=== PATIENT | male | born 1940 | race Caucasian/White ===

== ENCOUNTER → 2017-03-18 | Day surgery (SDC) | payer MEDICARE, OTHER ==
[~2017-03-18] MED LIST: BUPIVACAINE/EPINEPHRINE 0.25% 50 ML VIAL; KETOROLAC TROMETHAMINE 30 MG/ML (IVP) VIAL IV PUSH; LACTATED RINGER'S 1000 ML INJ 1,000 ML; MORPHINE SULFATE 4 MG/ML INJ; ONDANSETRON HCL 4 MG/2 ML VIAL IV PUSH; PROPOFOL 200 MG/20 ML AMP IV; ceFAZolin 2 GM PREMIX 50 ML
== END | disposition home or self-care (01) ==
LOC: ESDC 07:46
DX: K40.20 Bilateral inguinal hernia, without obstruction or gangrene, not specified as recurrent (principal)
CPT/HCPCS: 00840

== ENCOUNTER 2018-04-04 05:28 | Inpatient (IN) ==
[2018-04-04] MEDS ORDERED: Acetaminophen 325 MG Tablet PO ONE (05:53)
--- NOTE | 2018-04-04 06:08 | ED ---
HPI General Chief complaint: Fall Stated complaint: Hip pain Time Seen by Provider: 04/04/18 05:44 Source: patient Mode of arrival: EMS Limitations: no limitations History of Present Illness HPI narrative: 78-year-old [facility]. Patient says that yesterday he fell twice and today he fell once. No history of syncopal episode. Patient says that he feels weak and his legs give out. Patient is aware of all his falls. [facility] paperwork says that patient has history of frequent falls which patient admitted to. His temperature in ER was 103.5 rectally. He says he has been coughing a little. No history of vomiting or diarrhea. He was complaining of some sacral pain. Oxygen saturation was 93% on room air. Blood pressure and heart rate is within acceptable limits Related Data Home Medications Medication Instructions Recorded Confirmed aspirin 81 mg PO DAILY 04/04/18 04/04/18 docusate sodium [Colace] 100 mg PO DAILY 04/04/18 04/04/18 donepezil 10 mg PO DAILY 04/04/18 04/04/18 ezetimibe 10 mg PO DAILY 04/04/18 04/04/18 ferrous sulfate 324 mg PO BID 04/04/18 04/04/18 levetiracetam [Keppra] 1,000 mg PO BID 04/04/18 04/04/18 melatonin 5 mg PO HS 04/04/18 04/04/18 phenytoin sodium extended 200 mg PO BID 04/04/18 04/04/18 [Dilantin Extended] tamsulosin 0.4 mg PO DAILY 04/04/18 04/04/18 trazodone 50 mg PO HS 04/04/18 04/04/18 Allergies Allergy/AdvReac Type Severity Reaction Status Date / Time No Known Allergies Allergy Verified 04/04/18 05:39 Review of Systems ROS: all other systems reviewed are negative [facility] Social History Social History Substance History: No History of Abuse Second Hand Smoke Exposure: No Smoking Status: Never smoker How Often Do You Have a Drink Containing Alcohol: Never Recent Travel in [facility] within the Last 8 Weeks: No Recent Out of Country Travel within the Last 8 Weeks: No Immunization History Tetanus Immunization: Unsure Exam Narrative Exam Narrative: GENERAL: Awake, elderly, frail, moderate distress SKIN: Focused skin assessment warm/dry. Erythematous, blotchy, blanching, macular rash on bilateral lower extremities. Senile ecchymosis on bilateral upper extremities HEAD: Atraumatic. Normocephalic. EYES: Pupils equal and round. No scleral icterus. No injection or drainage. ENT: No nasal bleeding or discharge. Mucous membranes pink and moist. NECK: Trachea midline. No JVD. CARDIOVASCULAR: Regular rate and rhythm. No murmur appreciated. RESPIRATORY: No accessory muscle use. Clear to auscultation. Breath sounds equal bilaterally. GASTROINTESTINAL: Abdomen soft, non-tender, nondistended. Hepatic and splenic margins not palpable. MUSCULOSKELETAL: No obvious deformities. No clubbing. No cyanosis. No edema. Patient was rolled to his side and the spine palpated. No midline tenderness or step-offs. No decubitus ulcer NEUROLOGICAL: Awake and alert. No obvious cranial nerve deficits. Motor grossly within normal limits. Normal speech. PSYCHIATRIC: Appropriate mood and affect; insight and judgment normal. Course Initial Documented Vital Signs Temperature 100.7 F H 04/04/18 05:32 Pulse Rate 83 04/04/18 05:32 Respiratory Rate 18 04/04/18 05:32 Blood Pressure 162/85 H 04/04/18 05:32 Pulse Oximetry 93 L 04/04/18 05:32 Last Documented Vital Signs Temperature 98.0 F 04/07/18 12:00 Pulse Rate 75 04/07/18 12:00 Respiratory Rate 18 04/07/18 12:00 Blood Pressure 143/79 H 04/07/18 12:00 Pulse Oximetry 95 04/07/18 12:00 Sign Out Sign Out Data: Patient Sign Out occurred on 04/04/18 at 07:05. Patient's care was discussed, and care was transferred from Adriana Wilson to Braulio Fitzgerald MD. Sign Out Comment: Fever, frequent falls, follow-up on blood test result. Patient should be admitted Last updated by Adriana Wilson MD at 04/04/18 07:02 Post-Handoff Eval: Patient care assumed by me Dr. Fitzgerald from Dr. Wilson at 07 100, 78-year-old male apparently with a history of dementia according to she is presents emerged part with 103.1 fever, neutrophilia and urinary tract infection. Patient is just shy of sepsis criteria. He is confused, partially oriented for me. He is thinks that he is in his room now. He thinks is 2017 and April 03. Is not able to demonstrate understanding of why he is here. I do not disagree with Dr. Wilson's assessment the patient would benefit from IV antibiotics for complicated UTI near sepsis for a day or 2-6 times can be evaluated for discharge. Patient was started on empiric Rocephin, liter normal saline, Tylenol been given. I do not think he needs aggressive fluid resuscitation at this time. Lactic acid normal. Will discuss with the hospitalist extension worker. Medical Decision Making MDM Narrative Medical decision making narrative: 6:07 AM patient was given 650 mg of Tylenol p.o. 1 L of IV fluid bolus. Awaiting for blood test be done and resulted. 7 AM awaiting for blood test result. Patient has been signed over to the oncoming ER physician. Medical Screen Exam Complete: Yes Emergency Medical Condition: Yes Lab Data Result diagrams: 04/07/18 07:20 04/05/18 06:04 Lab Results 04/04/18 04/04/18 04/04/18 Range/Units 06:00 06:00 06:00 WBC 7.4 (4.0-11.0) th/mm3 RBC 4.82 (4.50-5.90) mil/mm3 Hgb 15.2 (13.0-17.0) gm/dL Hct 43.8 (39.0-51.0) % MCV 90.8 (80.0-100.0) fL MCH 31.5 (27.0-34.0) pg MCHC 34.7 (32.0-36.0) % RDW 13.5 (11.6-17.2) % Plt Count 183 (150-450) th/mm3 MPV 8.2 (7.0-11.0) fL Neut % (Auto) 89.4 H (16.0-70.0) % Lymph % (Auto) 1.5 L (9.0-44.0) % [place] % (Auto) 5.6 (0.0-8.0) % Eos % (Auto) 3.3 (0.0-4.0) % Baso % (Auto) 0.2 (0.0-2.0) % Neut # (Auto) 6.6 (1.8-7.7) th/mm3 Lymph # (Auto) 0.1 L (1.0-4.8) th/mm3 [place] # (Auto) 0.4 (0.0-0.9) th/mm3 Eos # (Auto) 0.2 (0.0-0.4) th/mm3 Baso # (Auto) 0.0 (0.0-0.2) th/mm3 WBC Differential . Differential Comment Auto diff final PT 10.9 (9.8-11.6) sec INR 1.1 Ratio Sodium (136-145) meq/L Potassium (3.5-5.1) meq/L Chloride (98-107) meq/L Carbon Dioxide (21.0-32.0) meq/L Anion Gap (5-15) meq/L BUN (7-18) mg/dL Creatinine (0.60-1.30) mg/dL Estimated GFR (>89) mL/min POC Glucose (68-110) mg/dl Random Glucose (74-106) mg/dL Lactic Acid (0.4-2.0) mmol/L Calcium (8.5-10.1) mg/dL Calcium Adj for Albumin (8.5-10.1) mg/dL Phosphorus (2.5-4.9) mg/dL Magnesium (1.5-2.5) mg/dL Total Bilirubin (0.2-1.0) mg/dL AST (15-37) U/L ALT (12-78) U/L Alkaline Phosphatase (45-117) U/L Troponin I Less than 0.02 L (0.02-0.05) ng/mL Total Protein (6.4-8.2) g/dL Albumin (3.4-5.0) g/dL Vitamin B12 (193-986) pg/mL Vitamin D 25-Hydroxy (30-100) ng/mL TSH (0.358-3.740) uIU/mL Urine Color (Yellw/Straw) Urine Clarity (Clear) Urine pH (5.0-8.5) Ur Specific [place] (1.002-1.035) Urine Protein (Neg-Trace) mg/dL Urine Glucose (UA) (Negative) mg/dL Urine Ketones (Negative) mg/dL Urine Occult Blood (Negative) Urine Nitrate (Negative) Urine Bilirubin (Negative) Urine Ictotest (Negative) Urine Urobilinogen (Less than 2) mg/dL Ur Leukocyte Esterase (Negative) Urine RBC (0-3) /hpf Urine WBC (0-5) /hpf Triple Phos Crystals (None) /hpf Urine Bacteria (None) /hpf Urine Mucus (Occasional) /lpf Micro UA Comment Ur Microscopic Review Urine Culture Comments 04/04/18 04/04/18 04/04/18 Range/Units 06:00 06:05 06:27 WBC (4.0-11.0) th/mm3 RBC (4.50-5.90) mil/mm3 Hgb (13.0-17.0) gm/dL Hct (39.0-51.0) % MCV (80.0-100.0) fL MCH (27.0-34.0) pg MCHC (32.0-36.0) % RDW (11.6-17.2) % Plt Count (150-450) th/mm3 MPV (7.0-11.0) fL Neut % (Auto) (16.0-70.0) % Lymph % (Auto) (9.0-44.0) % [place] % (Auto) (0.0-8.0) % Eos % (Auto) (0.0-4.0) % Baso % (Auto) (0.0-2.0) % Neut # (Auto) (1.8-7.7) th/mm3 Lymph # (Auto) (1.0-4.8) th/mm3 [place] # (Auto) (0.0-0.9) th/mm3 Eos # (Auto) (0.0-0.4) th/mm3 Baso # (Auto) (0.0-0.2) th/mm3 WBC Differential Differential Comment PT (9.8-11.6) sec INR Ratio Sodium 138 (136-145) meq/L Potassium 3.7 (3.5-5.1) meq/L Chloride 103 (98-107) meq/L Carbon Dioxide 26.8 (21.0-32.0) meq/L Anion Gap 8 (5-15) meq/L BUN 22 H (7-18) mg/dL Creatinine 0.93 (0.60-1.30) mg/dL Estimated GFR 79 L (>89) mL/min POC Glucose (68-110) mg/dl Random Glucose 97 (74-106) mg/dL Lactic Acid 1.5 (0.4-2.0) mmol/L Calcium 8.2 L (8.5-10.1) mg/dL Calcium Adj for Albumin (8.5-10.1) mg/dL Phosphorus (2.5-4.9) mg/dL Magnesium 1.9 (1.5-2.5) mg/dL Total Bilirubin 0.5 (0.2-1.0) mg/dL AST 32 (15-37) U/L ALT 47 (12-78) U/L Alkaline Phosphatase 107 (45-117) U/L Troponin I (0.02-0.05) ng/mL Total Protein 6.9 (6.4-8.2) g/dL Albumin 3.5 (3.4-5.0) g/dL Vitamin B12 (193-986) pg/mL Vitamin D 25-Hydroxy (30-100) ng/mL TSH (0.358-3.740) uIU/mL Urine Color Yellow (Yellw/Straw) Urine Clarity Cloudy H (Clear) Urine pH 8.5 (5.0-8.5) Ur Specific [place] 1.025 (1.002-1.035) Urine Protein 30 H (Neg-Trace) mg/dL Urine Glucose (UA) Negative (Negative) mg/dL Urine Ketones 20 (Negative) mg/dL Urine Occult Blood Trace H (Negative) Urine Nitrate Negative (Negative) Urine Bilirubin Negative (Negative) Urine Ictotest Negative (Negative) Urine Urobilinogen 0.2 (Less than 2) mg/dL Ur Leukocyte Esterase Trace H (Negative) Urine RBC 3 (0-3) /hpf Urine WBC 26 H (0-5) /hpf Triple Phos Crystals Moderate H (None) /hpf Urine Bacteria Many H (None) /hpf Urine Mucus Few H (Occasional) /lpf Micro UA Comment Culture indicated Ur Microscopic Review Not Reportable Urine Culture Comments Culture indicated 04/05/18 04/05/18 04/05/18 Range/Units 00:48 06:04 06:04 WBC 3.7 L (4.0-11.0) th/mm3 RBC 4.06 L (4.50-5.90) mil/mm3 Hgb 12.5 L D (13.0-17.0) gm/dL Hct 36.4 L (39.0-51.0) % MCV 89.6 (80.0-100.0) fL MCH 30.9 (27.0-34.0) pg MCHC 34.5 (32.0-36.0) % RDW 13.8 (11.6-17.2) % Plt Count 163 (150-450) th/mm3 MPV 8.2 (7.0-11.0) fL Neut % (Auto) 45.0 (16.0-70.0) % Lymph % (Auto) 11.8 (9.0-44.0) % [place] % (Auto) 10.4 H (0.0-8.0) % Eos % (Auto) 32.4 H (0.0-4.0) % Baso % (Auto) 0.4 (0.0-2.0) % Neut # (Auto) 1.7 L (1.8-7.7) th/mm3 Lymph # (Auto) 0.4 L (1.0-4.8) th/mm3 [place] # (Auto) 0.4 (0.0-0.9) th/mm3 Eos # (Auto) 1.2 H (0.0-0.4) th/mm3 Baso # (Auto) 0.0 (0.0-0.2) th/mm3 WBC Differential . Differential Comment Auto diff final PT (9.8-11.6) sec INR Ratio Sodium 142 (136-145) meq/L Potassium 3.6 (3.5-5.1) meq/L Chloride 111 H D (98-107) meq/L Carbon Dioxide 23.2 (21.0-32.0) meq/L Anion Gap 8 (5-15) meq/L BUN 22 H (7-18) mg/dL Creatinine 0.72 (0.60-1.30) mg/dL Estimated GFR Greater than 89 (>89) mL/min POC Glucose 91 (68-110) mg/dl Random Glucose 82 (74-106) mg/dL Lactic Acid (0.4-2.0) mmol/L Calcium 7.3 L* D (8.5-10.1) mg/dL Calcium Adj for Albumin 8.6 (8.5-10.1) mg/dL Phosphorus (2.5-4.9) mg/dL Magnesium (1.5-2.5) mg/dL Total Bilirubin (0.2-1.0) mg/dL AST (15-37) U/L ALT (12-78) U/L Alkaline Phosphatase (45-117) U/L Troponin I (0.02-0.05) ng/mL Total Protein (6.4-8.2) g/dL Albumin 2.4 L D (3.4-5.0) g/dL Vitamin B12 (193-986) pg/mL Vitamin D 25-Hydroxy (30-100) ng/mL TSH (0.358-3.740) uIU/mL Urine Color (Yellw/Straw) Urine Clarity (Clear) Urine pH (5.0-8.5) Ur Specific [place] (1.002-1.035) Urine Protein (Neg-Trace) mg/dL Urine Glucose (UA) (Negative) mg/dL Urine Ketones (Negative) mg/dL Urine Occult Blood (Negative) Urine Nitrate (Negative) Urine Bilirubin (Negative) Urine Ictotest (Negative) Urine Urobilinogen (Less than 2) mg/dL Ur Leukocyte Esterase (Negative) Urine RBC (0-3) /hpf Urine WBC (0-5) /hpf Triple Phos Crystals (None) /hpf Urine Bacteria (None) /hpf Urine Mucus (Occasional) /lpf Micro UA Comment Ur Microscopic Review Urine Culture Comments 04/05/18 04/05/18 04/05/18 Range/Units 06:17 11:40 16:52 WBC (4.0-11.0) th/mm3 RBC (4.50-5.90) mil/mm3 Hgb (13.0-17.0) gm/dL Hct (39.0-51.0) % MCV (80.0-100.0) fL MCH (27.0-34.0) pg MCHC (32.0-36.0) % RDW (11.6-17.2) % Plt Count (150-450) th/mm3 MPV (7.0-11.0) fL Neut % (Auto) (16.0-70.0) % Lymph % (Auto) (9.0-44.0) % [place] % (Auto) (0.0-8.0) % Eos % (Auto) (0.0-4.0) % Baso % (Auto) (0.0-2.0) % Neut # (Auto) (1.8-7.7) th/mm3 Lymph # (Auto) (1.0-4.8) th/mm3 [place] # (Auto) (0.0-0.9) th/mm3 Eos # (Auto) (0.0-0.4) th/mm3 Baso # (Auto) (0.0-0.2) th/mm3 WBC Differential Differential Comment PT (9.8-11.6) sec INR Ratio Sodium (136-145) meq/L Potassium (3.5-5.1) meq/L Chloride (98-107) meq/L Carbon Dioxide (21.0-32.0) meq/L Anion Gap (5-15) meq/L BUN (7-18) mg/dL Creatinine (0.60-1.30) mg/dL Estimated GFR (>89) mL/min POC Glucose 97 94 83 (68-110) mg/dl Random Glucose (74-106) mg/dL Lactic Acid (0.4-2.0) mmol/L Calcium (8.5-10.1) mg/dL Calcium Adj for Albumin (8.5-10.1) mg/dL Phosphorus (2.5-4.9) mg/dL Magnesium (1.5-2.5) mg/dL Total Bilirubin (0.2-1.0) mg/dL AST (15-37) U/L ALT (12-78) U/L Alkaline Phosphatase (45-117) U/L Troponin I (0.02-0.05) ng/mL Total Protein (6.4-8.2) g/dL Albumin (3.4-5.0) g/dL Vitamin B12 (193-986) pg/mL Vitamin D 25-Hydroxy (30-100) ng/mL TSH (0.358-3.740) uIU/mL Urine Color (Yellw/Straw) Urine Clarity (Clear) Urine pH (5.0-8.5) Ur Specific [place] (1.002-1.035) Urine Protein (Neg-Trace) mg/dL Urine Glucose (UA) (Negative) mg/dL Urine Ketones (Negative) mg/dL Urine Occult Blood (Negative) Urine Nitrate (Negative) Urine Bilirubin (Negative) Urine Ictotest (Negative) Urine Urobilinogen (Less than 2) mg/dL Ur Leukocyte Esterase (Negative) Urine RBC (0-3) /hpf Urine WBC (0-5) /hpf Triple Phos Crystals (None) /hpf Urine Bacteria (None) /hpf Urine Mucus (Occasional) /lpf Micro UA Comment Ur Microscopic Review Urine Culture Comments 04/05/18 04/06/18 04/06/18 Range/Units 23:34 05:31 07:39 WBC (4.0-11.0) th/mm3 RBC (4.50-5.90) mil/mm3 Hgb (13.0-17.0) gm/dL Hct (39.0-51.0) % MCV (80.0-100.0) fL MCH (27.0-34.0) pg MCHC (32.0-36.0) % RDW (11.6-17.2) % Plt Count (150-450) th/mm3 MPV (7.0-11.0) fL Neut % (Auto) (16.0-70.0) % Lymph % (Auto) (9.0-44.0) % [place] % (Auto) (0.0-8.0) % Eos % (Auto) (0.0-4.0) % Baso % (Auto) (0.0-2.0) % Neut # (Auto) (1.8-7.7) th/mm3 Lymph # (Auto) (1.0-4.8) th/mm3 [place] # (Auto) (0.0-0.9) th/mm3 Eos # (Auto) (0.0-0.4) th/mm3 Baso # (Auto) (0.0-0.2) th/mm3 WBC Differential Differential Comment PT (9.8-11.6) sec INR Ratio Sodium (136-145) meq/L Potassium (3.5-5.1) meq/L Chloride (98-107) meq/L Carbon Dioxide (21.0-32.0) meq/L Anion Gap (5-15) meq/L BUN (7-18) mg/dL Creatinine (0.60-1.30) mg/dL Estimated GFR (>89) mL/min POC Glucose 83 87 94 (68-110) mg/dl Random Glucose (74-106) mg/dL Lactic Acid (0.4-2.0) mmol/L Calcium (8.5-10.1) mg/dL Calcium Adj for Albumin (8.5-10.1) mg/dL Phosphorus (2.5-4.9) mg/dL Magnesium (1.5-2.5) mg/dL Total Bilirubin (0.2-1.0) mg/dL AST (15-37) U/L ALT (12-78) U/L Alkaline Phosphatase (45-117) U/L Troponin I (0.02-0.05) ng/mL Total Protein (6.4-8.2) g/dL Albumin (3.4-5.0) g/dL Vitamin B12 (193-986) pg/mL Vitamin D 25-Hydroxy (30-100) ng/mL TSH (0.358-3.740) uIU/mL Urine Color (Yellw/Straw) Urine Clarity (Clear) Urine pH (5.0-8.5) Ur Specific [place] (1.002-1.035) Urine Protein (Neg-Trace) mg/dL Urine Glucose (UA) (Negative) mg/dL Urine Ketones (Negative) mg/dL Urine Occult Blood (Negative) Urine Nitrate (Negative) Urine Bilirubin (Negative) Urine Ictotest (Negative) Urine Urobilinogen (Less than 2) mg/dL Ur Leukocyte Esterase (Negative) Urine RBC (0-3) /hpf Urine WBC (0-5) /hpf Triple Phos Crystals (None) /hpf Urine Bacteria (None) /hpf Urine Mucus (Occasional) /lpf Micro UA Comment Ur Microscopic Review Urine Culture Comments 04/06/18 04/06/18 04/06/18 Range/Units 11:47 16:12 16:24 WBC (4.0-11.0) th/mm3 RBC (4.50-5.90) mil/mm3 Hgb 13.2 (13.0-17.0) gm/dL Hct 37.7 L (39.0-51.0) % MCV (80.0-100.0) fL MCH (27.0-34.0) pg MCHC (32.0-36.0) % RDW (11.6-17.2) % Plt Count (150-450) th/mm3 MPV (7.0-11.0) fL Neut % (Auto) (16.0-70.0) % Lymph % (Auto) (9.0-44.0) % [place] % (Auto) (0.0-8.0) % Eos % (Auto) (0.0-4.0) % Baso % (Auto) (0.0-2.0) % Neut # (Auto) (1.8-7.7) th/mm3 Lymph # (Auto) (1.0-4.8) th/mm3 [place] # (Auto) (0.0-0.9) th/mm3 Eos # (Auto) (0.0-0.4) th/mm3 Baso # (Auto) (0.0-0.2) th/mm3 WBC Differential Differential Comment PT (9.8-11.6) sec INR Ratio Sodium (136-145) meq/L Potassium (3.5-5.1) meq/L Chloride (98-107) meq/L Carbon Dioxide (21.0-32.0) meq/L Anion Gap (5-15) meq/L BUN (7-18) mg/dL Creatinine (0.60-1.30) mg/dL Estimated GFR (>89) mL/min POC Glucose 84 96 (68-110) mg/dl Random Glucose (74-106) mg/dL Lactic Acid (0.4-2.0) mmol/L Calcium (8.5-10.1) mg/dL Calcium Adj for Albumin (8.5-10.1) mg/dL Phosphorus (2.5-4.9) mg/dL Magnesium (1.5-2.5) mg/dL Total Bilirubin (0.2-1.0) mg/dL AST (15-37) U/L ALT (12-78) U/L Alkaline Phosphatase (45-117) U/L Troponin I (0.02-0.05) ng/mL Total Protein (6.4-8.2) g/dL Albumin (3.4-5.0) g/dL Vitamin B12 (193-986) pg/mL Vitamin D 25-Hydroxy (30-100) ng/mL TSH (0.358-3.740) uIU/mL Urine Color (Yellw/Straw) Urine Clarity (Clear) Urine pH (5.0-8.5) Ur Specific [place] (1.002-1.035) Urine Protein (Neg-Trace) mg/dL Urine Glucose (UA) (Negative) mg/dL Urine Ketones (Negative) mg/dL Urine Occult Blood (Negative) Urine Nitrate (Negative) Urine Bilirubin (Negative) Urine Ictotest (Negative) Urine Urobilinogen (Less than 2) mg/dL Ur Leukocyte Esterase (Negative) Urine RBC (0-3) /hpf Urine WBC (0-5) /hpf Triple Phos Crystals (None) /hpf Urine Bacteria (None) /hpf Urine Mucus (Occasional) /lpf Micro UA Comment Ur Microscopic Review Urine Culture Comments 04/07/18 04/07/18 04/07/18 Range/Units 00:27 07:20 07:20 WBC 5.0 (4.0-11.0) th/mm3 RBC 4.58 (4.50-5.90) mil/mm3 Hgb 14.0 (13.0-17.0) gm/dL Hct 40.5 (39.0-51.0) % MCV 88.5 (80.0-100.0) fL MCH 30.6 (27.0-34.0) pg MCHC 34.6 (32.0-36.0) % RDW 13.6 (11.6-17.2) % Plt Count 196 (150-450) th/mm3 MPV 7.5 (7.0-11.0) fL Neut % (Auto) 51.0 (16.0-70.0) % Lymph % (Auto) 18.7 (9.0-44.0) % [place] % (Auto) 8.3 H (0.0-8.0) % Eos % (Auto) 21.5 H (0.0-4.0) % Baso % (Auto) 0.5 (0.0-2.0) % Neut # (Auto) 2.6 (1.8-7.7) th/mm3 Lymph # (Auto) 0.9 L (1.0-4.8) th/mm3 [place] # (Auto) 0.4 (0.0-0.9) th/mm3 Eos # (Auto) 1.1 H (0.0-0.4) th/mm3 Baso # (Auto) 0.0 (0.0-0.2) th/mm3 WBC Differential . Differential Comment Auto diff final PT (9.8-11.6) sec INR Ratio Sodium (136-145) meq/L Potassium (3.5-5.1) meq/L Chloride (98-107) meq/L Carbon Dioxide (21.0-32.0) meq/L Anion Gap (5-15) meq/L BUN (7-18) mg/dL Creatinine (0.60-1.30) mg/dL Estimated GFR (>89) mL/min POC Glucose 86 (68-110) mg/dl Random Glucose (74-106) mg/dL Lactic Acid (0.4-2.0) mmol/L Calcium (8.5-10.1) mg/dL Calcium Adj for Albumin (8.5-10.1) mg/dL Phosphorus 2.5 (2.5-4.9) mg/dL Magnesium (1.5-2.5) mg/dL Total Bilirubin (0.2-1.0) mg/dL AST (15-37) U/L ALT (12-78) U/L Alkaline Phosphatase (45-117) U/L Troponin I (0.02-0.05) ng/mL Total Protein (6.4-8.2) g/dL Albumin (3.4-5.0) g/dL Vitamin B12 647 (193-986) pg/mL Vitamin D 25-Hydroxy (30-100) ng/mL TSH 2.580 (0.358-3.740) uIU/mL Urine Color (Yellw/Straw) Urine Clarity (Clear) Urine pH (5.0-8.5) Ur Specific [place] (1.002-1.035) Urine Protein (Neg-Trace) mg/dL Urine Glucose (UA) (Negative) mg/dL Urine Ketones (Negative) mg/dL Urine Occult Blood (Negative) Urine Nitrate (Negative) Urine Bilirubin (Negative) Urine Ictotest (Negative) Urine Urobilinogen (Less than 2) mg/dL Ur Leukocyte Esterase (Negative) Urine RBC (0-3) /hpf Urine WBC (0-5) /hpf Triple Phos Crystals (None) /hpf Urine Bacteria (None) /hpf Urine Mucus (Occasional) /lpf Micro UA Comment Ur Microscopic Review Urine Culture Comments 04/07/18 Range/Units 07:20 WBC (4.0-11.0) th/mm3 RBC (4.50-5.90) mil/mm3 Hgb (13.0-17.0) gm/dL Hct (39.0-51.0) % MCV (80.0-100.0) fL MCH (27.0-34.0) pg MCHC (32.0-36.0) % RDW (11.6-17.2) % Plt Count (150-450) th/mm3 MPV (7.0-11.0) fL Neut % (Auto) (16.0-70.0) % Lymph % (Auto) (9.0-44.0) % [place] % (Auto) (0.0-8.0) % Eos % (Auto) (0.0-4.0) % Baso % (Auto) (0.0-2.0) % Neut # (Auto) (1.8-7.7) th/mm3 Lymph # (Auto) (1.0-4.8) th/mm3 [place] # (Auto) (0.0-0.9) th/mm3 Eos # (Auto) (0.0-0.4) th/mm3 Baso # (Auto) (0.0-0.2) th/mm3 WBC Differential Differential Comment PT (9.8-11.6) sec INR Ratio Sodium (136-145) meq/L Potassium (3.5-5.1) meq/L Chloride (98-107) meq/L Carbon Dioxide (21.0-32.0) meq/L Anion Gap (5-15) meq/L BUN (7-18) mg/dL Creatinine (0.60-1.30) mg/dL Estimated GFR (>89) mL/min POC Glucose (68-110) mg/dl Random Glucose (74-106) mg/dL Lactic Acid (0.4-2.0) mmol/L Calcium (8.5-10.1) mg/dL Calcium Adj for Albumin (8.5-10.1) mg/dL Phosphorus (2.5-4.9) mg/dL Magnesium (1.5-2.5) mg/dL Total Bilirubin (0.2-1.0) mg/dL AST (15-37) U/L ALT (12-78) U/L Alkaline Phosphatase (45-117) U/L Troponin I (0.02-0.05) ng/mL Total Protein (6.4-8.2) g/dL Albumin (3.4-5.0) g/dL Vitamin B12 (193-986) pg/mL Vitamin D 25-Hydroxy 13.3 L (30-100) ng/mL TSH (0.358-3.740) uIU/mL Urine Color (Yellw/Straw) Urine Clarity (Clear) Urine pH (5.0-8.5) Ur Specific [place] (1.002-1.035) Urine Protein (Neg-Trace) mg/dL Urine Glucose (UA) (Negative) mg/dL Urine Ketones (Negative) mg/dL Urine Occult Blood (Negative) Urine Nitrate (Negative) Urine Bilirubin (Negative) Urine Ictotest (Negative) Urine Urobilinogen (Less than 2) mg/dL Ur Leukocyte Esterase (Negative) Urine RBC (0-3) /hpf Urine WBC (0-5) /hpf Triple Phos Crystals (None) /hpf Urine Bacteria (None) /hpf Urine Mucus (Occasional) /lpf Micro UA Comment Ur Microscopic Review Urine Culture Comments Imaging Data Radiologist's impression: Chest X-Ray 04/04/18 05:54 CONCLUSION: 1. Diffuse interstitial prominence of unknown chronicity given lack of prior exams. ECG Data Attestation: I personally reviewed and interpreted this ECG as follows: Interpretation: Twelve-lead EKG was reviewed by me. Normal sinus rhythm, left axis deviation, peaked T waves. Heart rate of 81 bpm. Discharge Plan Discharge Disposition Patient Disposition: ED Admit(ED Internal Use Only) Discharge Order Discharge Orders: ED Use Only Admit Order (Routine); Ordered 04/04/18 Ordered By: Braulio Fitzgerald Physicians Team ED Provider: Braulio Fitzgerald Primary Care Provider: UNKNOWN, Attending Provider: Talat Bruce Other Providers: [facility] ; Yarelis Chung Status ED Status: Left Department Discharge Information Discharge Date/Time: 04/04/18 09:25
[2018-04-04] MEDS ORDERED: Sod Chloride 0.9% Inj 1,000 ML IV.SIG SCH (06:15)
--- NOTE | 2018-04-04 06:34 | XR ---
EXAM DATE: 04/04/2018 6:28 AM EST AGE/SEX: 78 years / Male INDICATIONS: Fever. CLINICAL DATA: This is the patient's initial encounter. Patient reports that signs and symptoms have been present for 1 day and indicates a pain score of 0/10. MEDICAL/SURGICAL HISTORY: None. None. COMPARISON: No prior exams available for comparison. FINDINGS: Mild diffuse interstitial prominence. No significant focal pleural or parenchymal opacities. The car diomediastinal contours are unremarkable. Osseous structures are intact. CONCLUSION: 1. Diffuse interstitial prominence of unknown chronicity given lack of prior exams. Electronically signed by: Andrew Arechiga MD Board Certified Radiologist 04/04/2018 6:33 AM EST
[2018-04-04 06:44] LABS: Baso % (Auto) 0.2 % (0.0-2.0); Eos # (Auto) 0.2 th/mm3 (0.0-0.4); Eos % (Auto) 3.3 % (0.0-4.0); Hematocrit 43.8 % (39.0-51.0); Hemoglobin 15.2 gm/dL (13.0-17.0); Lymph # (Auto) 0.1 th/mm3 (1.0-4.8); Lymph % (Auto) 1.5 % (9.0-44.0); Mean Corpuscular HGB Conc 34.7 % (32.0-36.0); Mean Corpuscular Hemoglobin 31.5 pg (27.0-34.0); Mean Corpuscular Volume 90.8 fL (80.0-100.0); Mean Platelet Volume 8.2 fL (7.0-11.0); Mono # (Auto) 0.4 th/mm3 (0.0-0.9); Mono % (Auto) 5.6 % (0.0-8.0); Neut # (Auto) 6.6 th/mm3 (1.8-7.7); Neut % (Auto) 89.4 % (16.0-70.0); Platelet Count 183 th/mm3 (150-450); Red Blood Count 4.82 mil/mm3 (4.50-5.90); Red Cell Distribution Width 13.5 % (11.6-17.2); White Blood Count 7.4 th/mm3 (4.0-11.0)
[2018-04-04 06:54] LABS: Alanine Aminotransferase 47 U/L (12-78); Albumin 3.5 g/dL (3.4-5.0); Anion Gap 8 meq/L (5-15); Aspartate Aminotransferase 32 U/L (15-37); Blood Urea Nitrogen 22 mg/dL (7-18); Calcium 8.2 mg/dL (8.5-10.1); Carbon Dioxide 26.8 meq/L (21.0-32.0); Chloride 103 meq/L (98-107); Glomerular Filtration Rate 79 mL/min (>89); Glucose,Random 97 mg/dL (74-106); Magnesium 1.9 mg/dL (1.5-2.5); Potassium 3.7 meq/L (3.5-5.1); Sodium 138 meq/L (136-145)
[2018-04-04 06:56] LABS: Alkaline Phosphatase 107 U/L (45-117); Total Protein 6.9 g/dL (6.4-8.2)
[2018-04-04 07:10] LABS: Bacteria,Urine Many /hpf; Bilirubin,Urine Negative (Negative); Clarity,Urine Cloudy (Clear); Glucose,Urine (UA) Negative (Negative); Leukocyte Esterase,Urine Trace (Negative); Mucus,Urine Few /lpf (Occasional); Nitrite,Urine Negative (Negative); Specific Gravity,Urine 1.025 (1.002-1.035); Triple Phosphate Crystal,Urine Moderate /hpf
[2018-04-04 07:17] LABS: Color,Urine Yellow (Yellw/Straw); PH,Urine 8.5 (5.0-8.5)
[2018-04-04 07:17] LABS: INR 1.1 Ratio; Prothrombin Time 10.9 sec (9.8-11.6)
[2018-04-04 07:18] LABS: Ictotest,Urine Negative (Negative); Urobilinogen,Urine 0.2 mg/dL (Less than 2)
[2018-04-04] MEDS ORDERED: Acetaminophen 325 MG Tablet PO PRN (08:12)
[2018-04-04] MEDS ORDERED: Bisacodyl 10 MG Supp RECTAL PRN (08:12)
[2018-04-04] MEDS: Sod Chloride 0.9% Inj 1,000 ML IV.CONT SCH ×2 (08:47→21:32)
[2018-04-04] MEDS: Enoxaparin Inj 40 MG/0.4 ML Syringe SQ SCH (08:47)
[2018-04-04] MEDS: Phenytoin Sodium 100 MG Capsule PO SCH ×2 (08:48→21:31)
[2018-04-04] MEDS: Ezetimibe 10 MG Tablet PO SCH (08:48)
[2018-04-04] MEDS: Ferrous Sulfate 325 MG Tablet PO SCH ×2 (08:48→21:31)
[2018-04-04] MEDS: Senna/Docusate Sodium 8.6/50 MG Tablet PO SCH ×2 (08:48→21:31)
[2018-04-04] MEDS: levETIRAcetam 500 MG Tablet PO SCH ×2 (08:51→21:31)
--- NOTE | 2018-04-04 12:57 | P.HPIM ---
History of Present Illness Primary Care Physician: UNKNOWN Chief Complaint: fall, hip pain, confusion History of Present Illness: 78-year-old male [facility]. Patient says that yesterday he fell twice and today he fell once. No history of syncopal episode. Patient says that he feels weak and his legs give out. Patient is aware of all his falls. [facility] says that patient has history of frequent falls which patient admitted to. His temperature in ER was 103.5 rectally. He says he has been coughing a little. No history of vomiting or diarrhea. He was complaining of some sacral pain. Oxygen saturation was 93% on room air. Blood pressure and heart rate is within acceptable limits. Patient is found with complicated UTI started with the IV antibiotics. Inpatient Certification Inpatient Certification: I certify that the inpatient services were ordered in accordance with Medicare regulations governing the order. This includes certification that hospital inpatient services are reasonable and necessary and in the case of services not specified as inpatient-only under 42 CFR 419.22(n), that they are appropriately provided as inpatient services in accordance to with the 2-midnight benchmark under 43 CFR 412.3(e) Estimated Total Length of Stay (Days): 3 Plans for Post Hospital Care: SNF Review of Systems Review of Systems: all other systems reviewed are negative [facility] Medical History Medical History BPH (benign prostatic hyperplasia) (Acute) Dementia (Acute) HTN (hypertension) (Acute) Hyperlipidemia (Acute) Hypokalemia (Acute) Seizure (Acute) TIA (transient ischemic attack) (Acute) Surgical History Surgical History Hx of fracture of right hip (Acute) Family History Family History Other HTN (hypertension) Social History Social History Substance History: No History of Abuse Smoking Status: Never smoker How Often Do You Have a Drink Containing Alcohol: Never Recent Travel in [place] within the Last 8 Weeks: No Recent Out of Country Travel within the Last 8 Weeks: No Immunization History Tetanus Immunization: Unsure Medications and Allergies Allergies Allergy/AdvReac Type Severity Reaction Status Date / Time No Known Allergies Allergy Verified 04/04/18 05:39 Home Medications Medication Instructions Recorded Confirmed Type aspirin 81 mg PO DAILY 04/04/18 04/04/18 History docusate sodium [Colace] 100 mg PO DAILY 04/04/18 04/04/18 History donepezil 10 mg PO DAILY 04/04/18 04/04/18 History ezetimibe 10 mg PO DAILY 04/04/18 04/04/18 History ferrous sulfate 324 mg PO BID 04/04/18 04/04/18 History levetiracetam [Keppra] 1,000 mg PO BID 04/04/18 04/04/18 History melatonin 5 mg PO HS 04/04/18 04/04/18 History phenytoin sodium extended 200 mg PO BID 04/04/18 04/04/18 History [Dilantin Extended] tamsulosin 0.4 mg PO DAILY 04/04/18 04/04/18 History trazodone 50 mg PO HS 04/04/18 04/04/18 History Active Medications: Active Medications Acetaminophen (Tylenol) 650 mg PO Q4H PRN PRN Reason: Temp > 100.4 Al Hydroxide/Mg Hydroxide (Milk Of Magntesha Liq) 30 ml PO Q12H PRN PRN Reason: Mild Constipation Aspirin (Aspirin Chew) 81 mg PO DAILY [facility] Last Admin: 04/04/18 08:48 Dose: 81 mg Bisacodyl (Dulcolax Supp) 10 mg RECTAL DAILY PRN PRN Reason: SEVERE CONSITIPATION Donepezil HCl (Aricept) 10 mg PO DAILY [facility] Last Admin: 04/04/18 08:48 Dose: 10 mg Ezetimibe (Zetia) 10 mg PO DAILY [facility] Last Admin: 04/04/18 08:48 Dose: 10 mg Enoxaparin Sodium (Lovenox Inj) 40 mg SQ Q24H [facility] Last Admin: 04/04/18 08:47 Dose: 40 mg Ferrous Sulfate (Ferosul) 325 mg PO BID [facility] Last Admin: 04/04/18 08:48 Dose: 325 mg Sodium Chloride (Ns Inj) 1,000 mls @ 75 mls/hr IV.CONT .[id number] [facility] Last Infusion: 04/04/18 09:37 Dose: 75 mls/hr Ceftriaxone Sodium 1,000 mg/ (Sodium Chloride) 100 mls @ 200 mls/hr IV.SIG Q24H [facility] Lactulose (Lactulose Liq) 30 ml PO DAILY PRN PRN Reason: SEVERE CONSITIPATION Levetiracetam (Keppra) 1,000 mg PO BID [facility] Last Admin: 04/04/18 08:51 Dose: 1,000 mg Melatonin (Melatonin) 5 mg PO [facility] Ondansetron HCl (Zofran Inj) 4 mg IV.PUSH Q6H PRN PRN Reason: NAUSEA OR VOMITING Phenytoin Sodium (Dilantin) 200 mg PO BID [facility] Last Admin: 04/04/18 08:48 Dose: 200 mg Senna/Docusate Sodium (Fatuma-Colace) 1 tab PO BID [facility] Last Admin: 04/04/18 08:48 Dose: 1 tab Sennosides (Senokot) 17.2 mg PO Q12H PRN PRN Reason: Moderate Constipation Sodium Chloride (Ns Flush) 2 ml IV.FLUSH BID [facility] Last Admin: 04/04/18 08:49 Dose: 2 ml Sodium Chloride (Ns Flush) 2 ml IV.FLUSH PRN PRN PRN Reason: FLUSH AFTER USING IV ACCESS Tamsulosin HCl (Flomax) 0.4 mg PO DAILY [facility] Last Admin: 04/04/18 08:48 Dose: 0.4 mg Trazodone HCl (Desyrel) 50 mg PO [facility] Physical Exam Vital signs: Vital Signs 04/04/18 05:32 04/04/18 05:43 04/04/18 06:26 Temperature 100.7 F H 103.1 F H Pulse Rate 83 85 Respiratory Rate 18 Blood Pressure 162/85 H Pulse Oximetry 93 L 98 04/04/18 07:00 04/04/18 07:05 04/04/18 08:12 Temperature 99.1 F 98.6 F Pulse Rate 71 71 71 Respiratory Rate 17 17 Blood Pressure 114/68 109/60 Pulse Oximetry 98 97 96 04/04/18 09:25 Temperature 97.7 F Pulse Rate 73 Respiratory Rate 17 Blood Pressure 118/76 Pulse Oximetry 96 Intake & Output 04/03/18 04/04/18 04/04/18 18:59 06:59 18:59 Intake Total 1100 / 1100 Balance 1100 / 1100 Weight 62.596 kg Intake: IV 1100 / 1100 NS Inj 1,000 ML @ 1000 mls/hr 1000 / 1000 IV.SIG BOLUS [facility] Rx#:[id number] Rocephin Inj 1,000 MG In NS Inj 100 / 100 100 ML @ 200 mls/hr IV.SIG ONCE ONE Rx#:[id number] Narrative: GENERAL: Pleasantly confused frail 78-year-old male, appears anxious. SKIN: Warm and dry. Senile ecchymosis on bilateral upper extremities. HEAD: Atraumatic. Normocephalic. EYES: Pupils equal and round. No scleral icterus. No injection or drainage. ENT: No nasal bleeding or discharge. Mucous membranes pink and moist. NECK: Trachea midline. No JVD. CARDIOVASCULAR: Regular rate and rhythm. RESPIRATORY: No accessory muscle use. Clear to auscultation. Breath sounds equal bilaterally. GASTROINTESTINAL: Abdomen soft, non-tender, nondistended. Hepatic and splenic margins not palpable. MUSCULOSKELETAL: Muscle wasting. Extremities without clubbing, cyanosis, or edema. No obvious deformities. NEUROLOGICAL: Awake and alert. No obvious cranial nerve deficits. Motor grossly within normal limits. Five out of 5 muscle strength in the arms and legs. Normal speech. PSYCHIATRIC: Appropriate mood and affect; insight and judgment normal. Results Labs CBC & Chem 7: 04/04/18 06:00 04/04/18 06:00 Imaging Impressions Chest X-Ray 04/04/18 05:54 CONCLUSION: 1. Diffuse interstitial prominence of unknown chronicity given lack of prior exams. Caprini VTE Risk Assessment Caprini VTE Risk Assessment: Moderate/High Risk (score >= 2) Caprini Risk Assessment Model: Point Value = 1 Point Value = 2 Point Value = 3 Point Value = 5 Age 41-60 Minor surgery BMI > 25 kg/m2 Swollen legs Varicose veins or History of unexplained or recurrent spontaneous Oral contraceptives or hormone replacement Sepsis (< 1 month) Serious lung disease, including pneumonia (< 1 month) Abnormal pulmonary function Acute myocardial infarction Congestive heart failure (< 1 month) History of inflammatory bowel disease Medical patient at bed rest Age 61-74 Arthroscopic surgery Major open surgery (> 45 min) Laparoscopic surgery (> 45 min) Malignancy Confined to bed (> 72 hours) Immobilizing plaster cast Central venous access Age >= 75 History of VTE Family history of VTE Factor V Leiden Prothrombin [id number] Lupus anticoagulant Anticardiolipin antibodies Elevated serum homocysteine Heparin-induced thrombocytopenia Other congenital or acquired thrombophilia Stroke (< 1 month) Elective arthroplasty Hip, pelvis, or leg fracture Acute spinal cord injury (< 1 month) Prophylaxis Regimen: Total Risk Factor Score Risk Level Prophylaxis Regimen 0-1 Low Early ambulation 2 Moderate Order ONE of the following: *Sequential Compression Device (SCD) *Heparin 5000 units SQ BID 3-4 Higher Order ONE of the following medications: *Heparin 5000 units SQ TID *Enoxaparin/Lovenox 40 mg SQ daily (WT < 150 kg, CrCl > 30 mL/min) *Enoxaparin/Lovenox 30 mg SQ daily (WT < 150 kg, CrCl > 10-29 mL/min) *Enoxaparin/Lovenox 30 mg SQ BID (WT < 150 kg, CrCl > 30 mL/min) AND/OR *Sequential Compression Device (SCD) 5 or more Highest Order ONE of the following medications: *Heparin 5000 units SQ TID (Preferred with Epidurals) *Enoxaparin/Lovenox 40 mg SQ daily (WT < 150 kg, CrCl > 30 mL/min) *Enoxaparin/Lovenox 30 mg SQ daily (WT < 150 kg, CrCl > 10-29 mL/min) *Enoxaparin/Lovenox 30 mg SQ BID (WT < 150 kg, CrCl > 30 mL/min) AND *Sequential Compression Device (SCD) Assessment and Plan Plan Sepsis/complicated UTI History of BPH History of seizures Diabetes Anemia iron deficiency History of dementia currently worsening due to UTI/sepsis Blood cultures pending Urine cultures pending Started on Rocephin IV antibiotics IV fluids 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 Previous records reviewed.
--- NOTE | 2018-04-04 14:05 | ECG ---
Date Performed: 04/04/2018 Time Performed: 05:38:09 PTAGE: 78 years EKG: Sinus rhythm MARKED LEFT AXIS DEVIATION MODERATE INTRAVENTRICULAR CONDUCTION DELAY ABNORMAL ECG NO PREVIOUS TRACING DOCTOR: Donovan Tan Interpretating Date/Time 04/04/2018 14:03:34
[2018-04-04] MEDS: Melatonin 5 MG Tablet PO SCH (21:31)
[2018-04-04] MEDS: traZODone 50 MG Tablet PO SCH (21:31)
[2018-04-05 06:52] LABS: Baso % (Auto) 0.4 % (0.0-2.0); Eos # (Auto) 1.2 th/mm3 (0.0-0.4); Eos % (Auto) 32.4 % (0.0-4.0); Hematocrit 36.4 % (39.0-51.0); Hemoglobin 12.5 gm/dL (13.0-17.0); Lymph # (Auto) 0.4 th/mm3 (1.0-4.8); Lymph % (Auto) 11.8 % (9.0-44.0); Mean Corpuscular HGB Conc 34.5 % (32.0-36.0); Mean Corpuscular Hemoglobin 30.9 pg (27.0-34.0); Mean Corpuscular Volume 89.6 fL (80.0-100.0); Mean Platelet Volume 8.2 fL (7.0-11.0); Mono # (Auto) 0.4 th/mm3 (0.0-0.9); Mono % (Auto) 10.4 % (0.0-8.0); Neut # (Auto) 1.7 th/mm3 (1.8-7.7); Platelet Count 163 th/mm3 (150-450); Red Blood Count 4.06 mil/mm3 (4.50-5.90); Red Cell Distribution Width 13.8 % (11.6-17.2); White Blood Count 3.7 th/mm3 (4.0-11.0)
[2018-04-05 07:16] LABS: Anion Gap 8 meq/L (5-15); Blood Urea Nitrogen 22 mg/dL (7-18); Calcium 7.3 mg/dL (8.5-10.1); Carbon Dioxide 23.2 meq/L (21.0-32.0); Chloride 111 meq/L (98-107); Glomerular Filtration Rate Greater Than 89 mL/min (>89); Glucose,Random 82 mg/dL (74-106); Potassium 3.6 meq/L (3.5-5.1); Sodium 142 meq/L (136-145)
[2018-04-05 07:53] LABS: Albumin 2.4 g/dL (3.4-5.0); Calcium-Albumin Corrected 8.6 mg/dL (8.5-10.1)
[2018-04-05] MEDS: Enoxaparin Inj 40 MG/0.4 ML Syringe SQ SCH (10:14)
[2018-04-05] MEDS: levETIRAcetam 500 MG Tablet PO SCH ×2 (10:15→20:26)
[2018-04-05] MEDS: Ferrous Sulfate 325 MG Tablet PO SCH ×2 (10:15→20:26)
[2018-04-05] MEDS: Phenytoin Sodium 100 MG Capsule PO SCH ×2 (10:15→20:26)
[2018-04-05] MEDS: Ezetimibe 10 MG Tablet PO SCH (10:15)
[2018-04-05] MEDS: Senna/Docusate Sodium 8.6/50 MG Tablet PO SCH ×2 (10:16→20:27)
[2018-04-05] MEDS: Sod Chloride 0.9% Inj 1,000 ML IV.CONT SCH ×2 (10:17→23:37)
--- NOTE | 2018-04-05 13:18 | P.PNIM ---
Subjective Interval history: Follow up for sepsis, complicated UTI: Patient seen and examined, Awake, alert and oriented x2. Denies any complaints, no nausea, no vomiting, no chest pain, shortness of breath. Eating well. Physical Exam Vital signs: Vital Signs 04/04/18 20:00 04/05/18 00:00 04/05/18 04:00 Temperature 98.5 F 98.4 F 98.4 F Pulse Rate 83 77 77 Respiratory Rate 18 16 16 Blood Pressure 114/61 131/51 L 131/51 L Pulse Oximetry 95 94 L 94 L 04/05/18 08:00 04/05/18 12:00 Temperature 97.8 F 98.4 F Pulse Rate 75 70 Respiratory Rate 16 17 Blood Pressure 127/70 156/75 H Pulse Oximetry 94 L 95 Intake & Output 04/04/18 04/05/18 04/05/18 18:59 06:59 18:59 Intake Total 1100 / 1100 1240 / 1240 1100 / 1100 Balance 1100 / 1100 1240 / 1240 1100 / 1100 Weight 72.575 kg 57 kg Intake: IV 1100 / 1100 1000 / 1000 1100 / 1100 NS Inj 1,000 ML @ 75 mls/hr IV. 1000 / 1000 1000 / 1000 CONT .[id number] [facility] Rx#:[id number] NS Inj 1,000 ML @ 1000 mls/hr 1000 / 1000 IV.SIG BOLUS [facility] Rx#:[id number] Rocephin Inj 1,000 MG In NS Inj 100 / 100 100 / 100 100 ML @ 200 mls/hr IV.SIG Q24H [facility] Rx#:[id number] Oral 240 / 240 Other: # Voids 3 # Incontinent Voids 3 Date of Last Bowel Movement 04/04/18 04/04/18 # Bowel Movements 1 Weight On Admission 72.575 kg Narrative: GENERAL: Pleasantly confused frail 78-year-old male,NAD SKIN: Warm and dry. HEAD: Atraumatic. Normocephalic. EYES: Pupils equal and round. No scleral icterus. No injection or drainage. ENT: No nasal bleeding or discharge. Mucous membranes pink and moist. NECK: Trachea midline. No JVD. CARDIOVASCULAR: Regular rate and rhythm. RESPIRATORY: No accessory muscle use. Clear to auscultation. Breath sounds equal bilaterally. GASTROINTESTINAL: Abdomen soft, non-tender, nondistended. Hepatic and splenic margins not palpable. MUSCULOSKELETAL: Muscle wasting. Extremities without clubbing, cyanosis, or edema. No obvious deformities. Pedal pulses 2+ bilateral. NEUROLOGICAL: Awake and alert, Oriented x2. No obvious cranial nerve deficits. Motor grossly within normal limits. Five out of 5 muscle strength in the arms and legs. Normal speech. PSYCHIATRIC: Demented, pleasant. Results Labs CBC & Chem 7: 04/05/18 06:04 04/05/18 06:04 Labs: Microbiology 04/04/18 06:05 Blood - Peripheral Aerobic Blood Culture - Preliminary No growth in 1 day 04/04/18 06:05 Blood - Peripheral Anaerobic Blood Culture - Preliminary Streptococcus species 04/04/18 06:00 Blood - Peripheral Aerobic Blood Culture - Preliminary No growth in 1 day 04/04/18 06:00 Blood - Peripheral Anaerobic Blood Culture - Preliminary gram positive cocci Assessment and Plan (1) Complicated UTI (urinary tract infection): Code(s): N39.0 - Urinary tract infection, site not specified Status: Acute (2) Bacteremia: Code(s): R78.81 - Bacteremia Status: Acute (3) Dementia: Code(s): F03.90 - Unspecified dementia without behavioral disturbance Status: Acute Plan 78-year-old male [facility]. No history of syncopal episode. Patient says that he feels weak and his legs give out. Patient is aware of all his falls. His temperature in ER was 103.5 rectally. He was complaining of some sacral pain. Oxygen saturation was 93% on room air. Blood pressure and heart rate is within acceptable limits. Found with UTI Complicated UTI Hx of BPH -Urine culture positive for group D enterococcus -Blood cultures x2+ for gram-positive cocci, Streptococcus species blood cultures positive for gram-positive cocci, Streptococcus species -Continue Rocephin 1 g IV daily, add Vanco 1 g daily and consult pharmacy for dosing -continue to follow cultures for sens. Frequent falls Secondary to infection, dementia -Consult PT for evaluation Fall precautions BPH -continue Flomax Seizure disorder, stable -Continue Keppra -Seizure precautions DM II, diet controlled -Blood glucose 90s, no need for monitoring for now Dementia With increased falls secondary to UTI -Continue with Aricept 10 mg p.o. day Anemia iron deficiency -Continue with ferrous sulfate 325 mg p.o. twice daily Monitor CBC DVT prophylaxis SCDs/teds/Lovenox Physical therapy evaluation Continue to follow cultures Code Status: Full code Discussed Condition With: RN, pt, CM Dr. Ham Garnica Discharge Planning: to SNF in 2-3 days Progress Note: Quality VTE Deep Vein Thrombosis/Pulmonary Embolism Present on Admission: No
[2018-04-05] MEDS ORDERED: Vancomycin Inj 1,000 MG in Sodium Chlor 0.9% Inj 250 ML IV.SIG ONE (14:59)
[2018-04-05] MEDS ORDERED: Vancomycin Consult Pharmacy OTHER PRN (14:59)
[2018-04-05] MEDS: Vancomycin Inj 750 MG in Sodium Chlor 0.9% Inj 250 ML IV.SIG SCH (16:09)
[2018-04-05] MEDS: Melatonin 5 MG Tablet PO SCH (20:26)
[2018-04-05] MEDS: traZODone 50 MG Tablet PO SCH (20:26)
[2018-04-06] MEDS: Vancomycin Inj 750 MG in Sodium Chlor 0.9% Inj 250 ML IV.SIG SCH ×2 (03:38→16:09)
[2018-04-06] MEDS: Ferrous Sulfate 325 MG Tablet PO SCH ×2 (08:45→21:37)
[2018-04-06] MEDS: Enoxaparin Inj 40 MG/0.4 ML Syringe SQ SCH (08:45)
[2018-04-06] MEDS: Ezetimibe 10 MG Tablet PO SCH (08:45)
[2018-04-06] MEDS: Senna/Docusate Sodium 8.6/50 MG Tablet PO SCH ×2 (08:45→21:37)
[2018-04-06] MEDS: Phenytoin Sodium 100 MG Capsule PO SCH ×2 (08:45→21:37)
[2018-04-06] MEDS: levETIRAcetam 500 MG Tablet PO SCH ×2 (08:45→21:37)
--- NOTE | 2018-04-06 14:30 | P.PNIM ---
Subjective Interval history: Follow up on patient with sepsis, complicated UTI, altered mental status. Patient seen and examined. Patient denies any fever or chills. He denies any headache, dizziness or lightheadedness. He denies any chest pain or shortness of breath. He denies any nausea, vomiting or abdominal pain. He says he has been falling alot prior to admission, even with use of walker. He says he has had tremor in right hand for years. Physical Exam Vital signs: Vital Signs 04/05/18 16:00 04/05/18 20:00 04/06/18 00:00 Temperature 98.9 F 98.0 F 98.2 F Pulse Rate 69 71 64 Respiratory Rate 17 22 20 Blood Pressure 162/71 H 125/72 129/75 Pulse Oximetry 97 94 L 95 04/06/18 04:00 04/06/18 08:00 04/06/18 12:00 Temperature 98.0 F 98.5 F 98.3 F Pulse Rate 57 L 77 67 Respiratory Rate 20 17 17 Blood Pressure 138/85 157/82 H 150/56 H Pulse Oximetry 94 L 97 94 L Intake & Output 04/05/18 04/06/18 04/06/18 18:59 06:59 18:59 Intake Total 1150 / 1150 1465.0 / 1465.0 100 / 100 Balance 1150 / 1150 1465.0 / 1465.0 100 / 100 Weight 58.4 kg Intake: IV 1150 / 1150 1465.0 / 1465.0 100 / 100 NS Inj 1,000 ML @ 75 mls/hr IV. 1000 / 1000 1000 / 1000 CONT .[id number] [facility] Rx#:[id number] Vancomycin Inj 750 MG In NS Inj 50 / 50 465.0 / 465.0 250 ML @ 250 mls/hr IV.SIG Q12H [facility] Rx#:[id number] Rocephin Inj 1,000 MG In NS Inj 100 / 100 100 / 100 100 ML @ 200 mls/hr IV.SIG Q24H [facility] Rx#:[id number] Other: # Urine Diapers 2 Date of Last Bowel Movement 04/05/18 Narrative: GENERAL: Frail thin elderly male patient, INAD. Awake and alert. Very hard of hearing. SKIN: Warm and dry. HEENT: Atraumatic. Normocephalic. Pupils equal and round. No scleral icterus. No nasal discharge. Mucous membranes pink and moist. NECK: Trachea midline. CARDIOVASCULAR: Regular rate and rhythm. RESPIRATORY: No accessory muscle use. Clear to auscultation. Breath sounds equal bilaterally. GASTROINTESTINAL: Abdomen soft, non-tender, nondistended. +BS. MUSCULOSKELETAL: Muscle wasting. Extremities without clubbing, cyanosis, or edema. No obvious deformities. Pedal pulses 2+ bilateral. +resting tremor right hand. NEUROLOGICAL: Awake and alert. No obvious cranial nerve deficits. Able to move all extremities spontaneously. Normal speech. PSYCHIATRIC: Calm and cooperative. Results Labs CBC & Chem 7: 04/06/18 16:24 04/05/18 06:04 Labs: Microbiology 04/04/18 06:00 Blood - Peripheral Aerobic Blood Culture - Preliminary No growth in 2 days 04/04/18 06:00 Blood - Peripheral Anaerobic Blood Culture - Final Viridans streptococcus grp Staphylococcus coag negative 04/04/18 06:05 Blood - Peripheral Aerobic Blood Culture - Preliminary No growth in 2 days 04/04/18 06:05 Blood - Peripheral Anaerobic Blood Culture - Preliminary Viridans streptococcus grp 04/04/18 06:27 Clean Catch Urine Urine Culture - Final Enterococcus faecalis Assessment and Plan (1) Complicated UTI (urinary tract infection): Code(s): N39.0 - Urinary tract infection, site not specified Status: Acute (2) Bacteremia: Code(s): R78.81 - Bacteremia Status: Acute (3) Dementia: Code(s): F03.90 - Unspecified dementia without behavioral disturbance Status: Acute Plan 78-year-old [facility]. No history of syncopal episode. Patient says that he feels weak and his legs give out. Patient is aware of all his falls. His temperature in ER was 103.5 rectally. He was complaining of some sacral pain. Oxygen saturation was 93% on room air. Blood pressure and heart rate is within acceptable limits. Found with UTI. Concern for early sepsis with fever, temp 103.5 Bacteremia Complicated UTI Hx of BPH -Urine culture positive for Enterococcus faecalis -Blood cultures +Viridans streptococcus and coag neg staph -ID consulted, appreciate assistance -Continue on IV Rocephin and Vancomycin pending ID recs -patient is no longer febrile, no leukocytosis -repeat blood cultures Frequent falls secondary to infection, dementia -continue with PT -Fall precautions -check orthostatic BP measurements -check Vitamin D, phos, B12, B6 and TSH levels BPH -continue Flomax Seizure disorder, stable -Continue Keppra and Dilantin -Seizure precautions DM II, diet controlled -Blood glucose 90s, no need for monitoring for now Dementia With increased falls secondary to UTI -Continue with Aricept 10 mg p.o. day Anemia iron deficiency -Continue with ferrous sulfate 325 mg p.o. twice daily 04/06 hgb dropped from 15.2 to 12.5 ?due to hemoconcentration. 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 Bruce Discharge Planning: Discharge pending ID evaluation/recommendations, results of repeat blood culture Progress Note: Quality VTE Deep Vein Thrombosis/Pulmonary Embolism Present on Admission: No
[2018-04-06] MEDS: Sod Chloride 0.9% Inj 1,000 ML IV.CONT SCH ×2 (15:55→21:37)
[2018-04-06 16:36] LABS: Hematocrit 37.7 % (39.0-51.0); Hemoglobin 13.2 gm/dL (13.0-17.0)
--- NOTE | 2018-04-06 18:12 | P.CONID ---
History of Present Illness Service: ID Consult date: 04/06/18 Requesting Physician: Mandie Ravi Reason for Consult: bactermnmia, UTI Primary Care Provider: UNKNOWN Chief Complaint: fall, hip pain, confusion History of Present Illness: 78 yo male with underlying dementia unable to provide meaningful histroy Pt 7 was [facility]. On prtesentaion his temperature in ER was 103.5 rectally. + coughing No history of vomiting or diarrhea. Patient is found with complicated UTI started with the IV antibiotics. W/u showed abormal UA with pyuria, culture + fr enteroccoccus amp S Blood clx with viridans strep, one of the sets also has coag neg staph On vancomycin, ROcephin Review of Systems unobtainable due to mental condition PMFSH - History History Provided By: Patient - Medical History Medical History: Medical History (Last Reviewed 04/06/18 @ 08:43 by Renetta Steiner) BPH (benign prostatic hyperplasia) Dementia HTN (hypertension) Hyperlipidemia Hypokalemia Seizure TIA (transient ischemic attack) - Surgical History Surgical History: Surgical History (Last Reviewed 04/06/18 @ 08:43 by Renetta Steiner) Hx of fracture of right hip - Family History Family History: Family History (Last Reviewed 04/06/18 @ 08:43 by Renetta Steiner) Other HTN (hypertension) - Tobacco History Second Hand Smoke Exposure: No Smoking Status: Never smoker - Alcohol History How Often Do You Have a Drink Containing Alcohol: Never - Substance Use History Substance History: No History of Abuse - Travel History Recent Travel in the [place] Within the Last 8 Weeks: No Recent Travel Out of the Country Within the Last 8 Weeks: No - Immunization History Tetanus Immunization: Unable to Assess Hx Influenza Vaccine This Season: Unable to Assess Medications and Allergies Active Medications: Active Medications Acetaminophen (Tylenol) 650 mg PO Q4H PRN PRN Reason: Temp > 100.4 Al Hydroxide/Mg Hydroxide (Milk Of Magnesia Liq) 30 ml PO Q12H PRN PRN Reason: Mild Constipation Aspirin (Aspirin Chew) 81 mg PO DAILY [facility] Last Admin: 04/06/18 08:45 Dose: 81 mg Bisacodyl (Dulcolax Supp) 10 mg RECTAL DAILY PRN PRN Reason: SEVERE CONSITIPATION Donepezil HCl (Aricept) 10 mg PO DAILY [facility] Last Admin: 04/06/18 08:45 Dose: 10 mg Ezetimibe (Zetia) 10 mg PO DAILY [facility] Last Admin: 04/06/18 08:45 Dose: 10 mg Enoxaparin Sodium (Lovenox Inj) 40 mg SQ Q24H [facility] Last Admin: 04/06/18 08:45 Dose: 40 mg Ferrous Sulfate (Ferosul) 325 mg PO BID [facility] Last Admin: 04/06/18 08:45 Dose: 325 mg Vancomycin HCl 750 mg/ Sodium (Chloride) 257.5 mls @ 250 mls/hr IV.SIG Q12H [facility] Last Infusion: 04/06/18 18:06 Dose: Infused Sodium Chloride (Ns Inj) 1,000 mls @ 75 mls/hr IV.CONT .[id number] [facility] Last Infusion: 04/06/18 17:14 Dose: 75 mls/hr Ceftriaxone Sodium 1,000 mg/ (Sodium Chloride) 100 mls @ 200 mls/hr IV.SIG Q24H [facility] Last Infusion: 04/06/18 10:00 Dose: Infused Lactulose (Lactulose Liq) 30 ml PO DAILY PRN PRN Reason: SEVERE CONSITIPATION Levetiracetam (Keppra) 1,000 mg PO BID [facility] Last Admin: 04/06/18 08:45 Dose: 1,000 mg Melatonin (Melatonin) 5 mg PO HS [facility] Last Admin: 04/05/18 20:26 Dose: 5 mg Miscellaneous Information ([facility] Ordered Lab Info) 1 each OTHER ONCE ONE Stop: 04/07/18 03:46 Multivitamins/Minerals (Theragran-M) 1 tab PO DAILY [facility] Ondansetron HCl (Zofran Inj) 4 mg IV.PUSH Q6H PRN PRN Reason: NAUSEA OR VOMITING Pharmacy Profile Note (Vancomycin Consult Pharmacy) 1 each OTHER UNSCH PRN PRN Reason: Pharmacy to dose Phenytoin Sodium (Dilantin) 200 mg PO BID [facility] Last Admin: 04/06/18 08:45 Dose: 200 mg Senna/Docusate Sodium (Fatuma-Colace) 1 tab PO BID [facility] Last Admin: 04/06/18 08:45 Dose: 1 tab Sennosides (Senokot) 17.2 mg PO Q12H PRN PRN Reason: Moderate Constipation Sodium Chloride (Ns Flush) 2 ml IV.FLUSH BID [facility] Last Admin: 04/06/18 08:46 Dose: Not Given Sodium Chloride (Ns Flush) 2 ml IV.FLUSH PRN PRN PRN Reason: FLUSH AFTER USING IV ACCESS Tamsulosin HCl (Flomax) 0.4 mg PO DAILY [facility] Last Admin: 04/06/18 08:45 Dose: 0.4 mg Trazodone HCl (Desyrel) 50 mg PO [facility] Last Admin: 04/05/18 20:26 Dose: 50 mg Allergies Allergy/AdvReac Type Severity Reaction Status Date / Time No Known Allergies Allergy Verified 04/04/18 05:39 Home Medications Medication Instructions Recorded Confirmed Type aspirin 81 mg PO DAILY 04/04/18 04/04/18 History docusate sodium [Colace] 100 mg PO DAILY 04/04/18 04/04/18 History donepezil 10 mg PO DAILY 04/04/18 04/04/18 History ezetimibe 10 mg PO DAILY 04/04/18 04/04/18 History ferrous sulfate 324 mg PO BID 04/04/18 04/04/18 History levetiracetam [Keppra] 1,000 mg PO BID 04/04/18 04/04/18 History melatonin 5 mg PO HS 04/04/18 04/04/18 History phenytoin sodium extended 200 mg PO BID 04/04/18 04/04/18 History [Dilantin Extended] tamsulosin 0.4 mg PO DAILY 04/04/18 04/04/18 History trazodone 50 mg PO HS 04/04/18 04/04/18 History Exam Vital signs: Vital Signs 04/05/18 20:00 04/06/18 00:00 04/06/18 04:00 Temperature 98.0 F 98.2 F 98.0 F Pulse Rate 71 64 57 L Respiratory Rate 22 20 20 Blood Pressure 125/72 129/75 138/85 Pulse Oximetry 94 L 95 94 L 04/06/18 08:00 04/06/18 12:00 04/06/18 15:44 Temperature 98.5 F 98.3 F 97.9 F Pulse Rate 77 67 72 Respiratory Rate 17 17 17 Blood Pressure 157/82 H 150/56 H 149/85 H Pulse Oximetry 97 94 L 95 Intake & Output 04/05/18 04/06/18 04/06/18 18:59 06:59 18:59 Intake Total 1150 / 1150 1465.0 / 1465.0 2257.5 / 2257.5 Balance 1150 / 1150 1465.0 / 1465.0 2257.5 / 2257.5 Weight 58.4 kg Intake: IV 1150 / 1150 1465.0 / 1465.0 1057.5 / 1057.5 NS Inj 1,000 ML @ 75 mls/hr IV. 1000 / 1000 1000 / 1000 700 / 700 CONT .[id number] [facility] Rx#:[id number] Vancomycin Inj 750 MG In NS Inj 50 / 50 465.0 / 465.0 257.5 / 257.5 250 ML @ 250 mls/hr IV.SIG Q12H [facility] Rx#:[id number] Rocephin Inj 1,000 MG In NS Inj 100 / 100 100 / 100 100 ML @ 200 mls/hr IV.SIG Q24H [facility] Rx#:[id number] Oral 1200 / 1200 Other: # Urine Diapers 2 6 Date of Last Bowel Movement 04/05/18 04/06/18 # Bowel Movements 1 - Constitutional no acute distress, thin - Routine HEENT Exam Head: Present: normocephalic, atraumatic Eye: Present: EOMI, PERRL ENT: Present: mucous membranes moist. Absent: dentition normal (poor) - Routine Neck Exam Present: supple. Absent: lymphadenopathy - Routine Respiratory Exam Present: CTA bilaterally. Absent: accessory muscle use, decreased breath sounds - Routine Cardiovascular Exam Present: RRR, S1, S2. Absent: murmur, gallop, rubs - Routine Abdominal Exam Present: soft, normoactive bowel sounds. Absent: tenderness, distended Comments: incontinent of unformed stool - Routine Extremities Exam Absent: cyanosis, clubbing, edema - Routine Skin Exam Present: intact. Absent: cyanosis, lesions, rash - Routine Neurological Exam Present: alert, CN II-XII intact. Absent: oriented X3 (x1-2), sensory deficit, motor deficit, hearing grossly intact (decreased), normal speech (not alwasy coherent) - Routine Psychiatric Exam Present: normal affect, cooperative Results - Labs CBC & Chem 7: 04/06/18 16:24 04/05/18 06:04 Labs: Laboratory Results - last 24 hr 04/05/18 04/06/18 04/06/18 23:34 05:31 07:39 Hgb Hct POC Glucose 83 87 94 04/06/18 04/06/18 04/06/18 11:47 16:12 16:24 Hgb 13.2 Hct 37.7 L POC Glucose 84 96 - Imaging Chest X-Ray 04/04/18 05:54 CONCLUSION: 1. Diffuse interstitial prominence of unknown chronicity given lack of prior exams. Assessment and Plan - Plan Syncopal episoded, and fever - lik[place] 2/2 sepsis UTI Vir strep bactermia / source will change abx to Unasyn 2 D echo repeat blood clx
[2018-04-06] MEDS: Melatonin 5 MG Tablet PO SCH (21:37)
[2018-04-06] MEDS: traZODone 50 MG Tablet PO SCH (21:37)
[2018-04-07] MEDS: Ampicillin/Sulbactam Inj 3 GM in Sodium Chloride 0.9% Inj 100 ML IV.SIG SCH ×4 (02:27→21:29)
[2018-04-07] MEDS: Sod Chloride 0.9% Inj 1,000 ML IV.CONT SCH ×2 (02:55→09:40)
[2018-04-07] MEDS ORDERED: Pharmacy Ordered Lab Info OTHER ONE (03:45)
--- NOTE | 2018-04-07 07:31 | P.PNIM ---
Subjective Interval history: Follow up on patient with sepsis, complicated UTI, altered mental status. Patient seen and examined. Patient denies any acute medical complaints. He says he feels ok. He denies any fever or chills. He denies any chest pain or dyspnea. He denies any N/V or abdominal pain. He reports having soft stools. He says he has a good appetite and todays breakfast was very good. Physical Exam Vital signs: Vital Signs 04/06/18 08:00 04/06/18 12:00 04/06/18 15:44 Temperature 98.5 F 98.3 F 97.9 F Pulse Rate 77 67 72 Respiratory Rate 17 17 17 Blood Pressure 157/82 H 150/56 H 149/85 H Pulse Oximetry 97 94 L 95 04/06/18 20:00 04/07/18 00:00 04/07/18 00:05 Temperature 98.3 F 98.0 F Pulse Rate 69 73 60 Respiratory Rate 20 20 Blood Pressure 126/75 147/86 H Pulse Oximetry 95 94 L 04/07/18 04:00 Temperature 98.2 F Pulse Rate 67 Respiratory Rate 20 Blood Pressure 136/81 Pulse Oximetry 97 Intake & Output 04/06/18 04/07/18 04/07/18 18:59 06:59 18:59 Intake Total 2257.5 / 2257.5 400 / 400 Balance 2257.5 / 2257.5 400 / 400 Weight 58 kg Intake: IV 1057.5 / 1057.5 400 / 400 NS Inj 1,000 ML @ 75 mls/hr IV. 700 / 700 300 / 300 CONT .[id number] [facility] Rx#:[id number] Unasyn Inj 3 GM In NS Inj 100 100 / 100 ML @ 200 mls/hr IV.SIG Q6H [facility] Rx#:[id number] Vancomycin Inj 750 MG In NS Inj 257.5 / 257.5 250 ML @ 250 mls/hr IV.SIG Q12H [facility] Rx#:[id number] Rocephin Inj 1,000 MG In NS Inj 100 / 100 100 ML @ 200 mls/hr IV.SIG Q24H [facility] Rx#:[id number] Oral 1200 / 1200 Other: # Incontinent Voids 3 # Urine Diapers 6 Date of Last Bowel Movement 04/06/18 04/06/18 # Bowel Movements 1 # Incontinent Bowel Movements 2 Narrative: GENERAL: Frail thin elderly male patient, INAD. Awake and alert. Very hard of hearing. Appears comfortable lying in bed. SKIN: Warm and dry. HEENT: Atraumatic. Normocephalic. Pupils equal and round. No scleral icterus. No nasal discharge. Mucous membranes pink and moist. NECK: Trachea midline. CARDIOVASCULAR: Regular rate and rhythm. RESPIRATORY: No accessory muscle use. Clear to auscultation. Breath sounds equal bilaterally. GASTROINTESTINAL: Abdomen soft, non-tender, nondistended. +BS. MUSCULOSKELETAL: Muscle wasting. Extremities without clubbing, cyanosis or edema. No obvious deformities. +resting tremor right hand. NEUROLOGICAL: Awake and alert. No obvious cranial nerve deficits. Able to move all extremities spontaneously. Normal speech. PSYCHIATRIC: Calm and cooperative. Results Labs CBC & Chem 7: 04/07/18 07:20 04/05/18 06:04 Labs: Microbiology 04/04/18 06:00 Blood - Peripheral Aerobic Blood Culture - Preliminary No growth in 2 days 04/04/18 06:00 Blood - Peripheral Anaerobic Blood Culture - Final Viridans streptococcus grp Staphylococcus coag negative 04/04/18 06:05 Blood - Peripheral Aerobic Blood Culture - Preliminary No growth in 2 days 04/04/18 06:05 Blood - Peripheral Anaerobic Blood Culture - Preliminary Viridans streptococcus grp 04/04/18 06:27 Clean Catch Urine Urine Culture - Final Enterococcus faecalis Assessment and Plan Plan 78-year-old male was sent from the [facility] for frequent falls. No history of syncopal episode. Patient says that he feels weak and his legs give out. Patient is aware of all his falls. His temperature in ER was 103.5 rectally. He was complaining of some sacral pain. Oxygen saturation was 93% on room air. Blood pressure and heart rate is within acceptable limits. Found with UTI. Concern for early sepsis with fever, temp 103.5 Bacteremia Complicated UTI Hx of BPH -Urine culture positive for Enterococcus faecalis -Blood cultures +Viridans streptococcus and coag neg staph -ID following, appreciate assistance, abx changed to IV Unasyn. 2D echo ordered /pending. -patient is no longer febrile, no leukocytosis -repeat blood cultures with no growth x 1 day, continue to follow until finalized Frequent falls secondary to infection, dementia TSH 2.580 B12 647 Phos 2.5 B6 pending -continue with PT -Fall precautions -check orthostatic BP measurements - pending Vitamin D deficiency Vit D level 13.3 -start on po vitamin D3 supplementation daily BPH -continue Flomax Seizure disorder, stable -Continue Keppra and Dilantin -Seizure precautions DM II, diet controlled -Blood glucose 90s, no need for monitoring for now Dementia With increased falls secondary to UTI -Continue with Aricept 10 mg p.o. day Anemia iron deficiency -Continue with ferrous sulfate 325 mg p.o. twice daily 04/06 hgb dropped from 15.2 to 12.5 ?due to hemoconcentration. 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 Bruce Discharge Planning: Discharge pending ID workup/Echo results, results of repeat blood culture Progress Note: Quality VTE Deep Vein Thrombosis/Pulmonary Embolism Present on Admission: No
[2018-04-07 07:40] LABS: Baso % (Auto) 0.5 % (0.0-2.0); Eos # (Auto) 1.1 th/mm3 (0.0-0.4); Eos % (Auto) 21.5 % (0.0-4.0); Hematocrit 40.5 % (39.0-51.0); Lymph # (Auto) 0.9 th/mm3 (1.0-4.8); Lymph % (Auto) 18.7 % (9.0-44.0); Mean Corpuscular HGB Conc 34.6 % (32.0-36.0); Mean Corpuscular Hemoglobin 30.6 pg (27.0-34.0); Mean Corpuscular Volume 88.5 fL (80.0-100.0); Mean Platelet Volume 7.5 fL (7.0-11.0); Mono # (Auto) 0.4 th/mm3 (0.0-0.9); Mono % (Auto) 8.3 % (0.0-8.0); Neut # (Auto) 2.6 th/mm3 (1.8-7.7); Platelet Count 196 th/mm3 (150-450); Red Blood Count 4.58 mil/mm3 (4.50-5.90); Red Cell Distribution Width 13.6 % (11.6-17.2)
[2018-04-07 08:28] LABS: Phosphorus 2.5 mg/dL (2.5-4.9); Thyroid Stimulating Hormone 2.58 uIU/mL (0.358-3.740)
[2018-04-07] MEDS: Enoxaparin Inj 40 MG/0.4 ML Syringe SQ SCH (09:26)
[2018-04-07] MEDS: levETIRAcetam 500 MG Tablet PO SCH ×2 (09:27→21:29)
[2018-04-07] MEDS: Ferrous Sulfate 325 MG Tablet PO SCH ×2 (09:27→21:29)
[2018-04-07] MEDS: Ezetimibe 10 MG Tablet PO SCH (09:28)
[2018-04-07] MEDS: Multivitamin/Minerals Therapeutic Tablet PO SCH (09:28)
[2018-04-07] MEDS: Phenytoin Sodium 100 MG Capsule PO SCH ×2 (09:33→21:28)
[2018-04-07] MEDS: Senna/Docusate Sodium 8.6/50 MG Tablet PO SCH ×2 (09:43→21:29)
--- NOTE | 2018-04-07 17:17 | P.PNID ---
Subjective Remarks: pt is having diarrhea no fever + viridans strep bactermia vir strep S ampicillin Antibiotics: ampicilln/S Allergies/Adverse Reactions: Allergies No Known Allergies Allergy (Verified 04/04/18 05:39) Objective Vital Signs 04/06/18 20:00 04/07/18 00:00 04/07/18 00:05 Temperature 98.3 F 98.0 F Pulse Rate 69 73 60 Respiratory Rate 20 20 Blood Pressure 126/75 147/86 H Pulse Oximetry 95 94 L 04/07/18 04:00 04/07/18 08:00 04/07/18 12:00 Temperature 98.2 F 98.0 F 98.0 F Pulse Rate 67 66 75 Respiratory Rate 20 18 18 Blood Pressure 136/81 163/88 H 143/79 H Pulse Oximetry 97 97 95 Intake & Output 04/06/18 04/07/18 04/07/18 18:59 06:59 18:59 Intake Total 2257.5 / 2257.5 400 / 400 1100 / 1100 Balance 2257.5 / 2257.5 400 / 400 1100 / 1100 Weight 58 kg Intake: IV 1057.5 / 1057.5 400 / 400 1100 / 1100 NS Inj 1,000 ML @ 75 mls/hr IV. 700 / 700 300 / 300 1000 / 1000 CONT .[id number] [facility] Rx#:[id number] Unasyn Inj 3 GM In NS Inj 100 100 / 100 100 / 100 ML @ 200 mls/hr IV.SIG Q6H [facility] Rx#:[id number] Vancomycin Inj 750 MG In NS Inj 257.5 / 257.5 250 ML @ 250 mls/hr IV.SIG Q12H [facility] Rx#:[id number] Rocephin Inj 1,000 MG In NS Inj 100 / 100 100 ML @ 200 mls/hr IV.SIG Q24H [facility] Rx#:[id number] Oral 1200 / 1200 Other: # Incontinent Voids 3 # Urine Diapers 6 Date of Last Bowel Movement 04/06/18 04/06/18 04/07/18 # Bowel Movements 1 # Incontinent Bowel Movements 2 04/04/18 06:05 Blood - Peripheral Aerobic Blood Culture - Preliminary No growth in 3 days 04/04/18 06:05 Blood - Peripheral Anaerobic Blood Culture - Final Viridans streptococcus grp 04/06/18 11:27 Blood - Peripheral Aerobic Blood Culture - Preliminary No growth in 1 day 04/06/18 11:27 Blood - Peripheral Anaerobic Blood Culture - Preliminary No growth in 1 day 04/06/18 11:37 Blood - Peripheral Aerobic Blood Culture - Preliminary No growth in 1 day 04/06/18 11:37 Blood - Peripheral Anaerobic Blood Culture - Preliminary No growth in 1 day 04/04/18 06:00 Blood - Peripheral Aerobic Blood Culture - Preliminary No growth in 3 days 04/04/18 06:00 Blood - Peripheral Anaerobic Blood Culture - Final Viridans streptococcus grp Staphylococcus coag negative 04/04/18 06:27 Clean Catch Urine Urine Culture - Final Enterococcus faecalis Lab - Hematology Results 04/06/18 04/07/18 16:24 07:20 WBC 5.0 RBC 4.58 Hgb 13.2 14.0 Hct 37.7 L 40.5 MCV 88.5 MCH 30.6 MCHC 34.6 RDW 13.6 Plt Count 196 MPV 7.5 Neut % (Auto) 51.0 Lymph % (Auto) 18.7 Dane % (Auto) 8.3 H Eos % (Auto) 21.5 H Baso % (Auto) 0.5 Neut # (Auto) 2.6 Lymph # (Auto) 0.9 L Dane # (Auto) 0.4 Eos # (Auto) 1.1 H Baso # (Auto) 0.0 WBC Differential . Differential Comment Auto diff final Lab - Chemistry Results 04/05/18 04/06/18 04/06/18 23:34 05:31 07:39 POC Glucose 83 87 94 Phosphorus Vitamin B12 Vitamin D 25-Hydroxy TSH 04/06/18 04/06/18 04/07/18 11:47 16:12 00:27 POC Glucose 84 96 86 Phosphorus Vitamin B12 Vitamin D 25-Hydroxy TSH 04/07/18 04/07/18 07:20 07:20 POC Glucose Phosphorus 2.5 Vitamin B12 647 Vitamin D 25-Hydroxy 13.3 L TSH 2.580 Imaging: ITS Impressions Chest X-Ray 04/04/18 05:54 CONCLUSION: 1. Diffuse interstitial prominence of unknown chronicity given lack of prior exams. Physical Exam: GENERAL: NAD SKIN: Warm and dry. HEAD: Atraumatic. Normocephalic. EYES: Pupils equal and round. No scleral icterus. No injection or drainage. ENT: No nasal bleeding or discharge. Mucous membranes pink and moist. NECK: Trachea midline. No JVD. CARDIOVASCULAR: Regular rate and rhythm. RESPIRATORY: No accessory muscle use. Clear to auscultation. Breath sounds equal bilaterally. GASTROINTESTINAL: Abdomen soft, non-tender, nondistended. Hepatic and splenic margins not palpable. MUSCULOSKELETAL: Extremities without clubbing, cyanosis, or edema. No obvious deformities. NEUROLOGICAL: Awake and alert. [place] [employer] [place]. following commands Five out of 5 muscle strength in the arms and legs. Normal speech. PSYCHIATRIC: calm and coopertaitve Assessment and Plan - Plan Syncopal episoded, and fever - [facility] 2/2 sepsis UTI Vir strep bactermia / source diarrehea, abx associated cont Unasyn 2 D echo fu repeat blood clx ro c.diff
[2018-04-07] MEDS: traZODone 50 MG Tablet PO SCH (21:29)
[2018-04-07] MEDS: Melatonin 5 MG Tablet PO SCH (21:29)
[2018-04-08] MEDS: Ampicillin/Sulbactam Inj 3 GM in Sodium Chloride 0.9% Inj 100 ML IV.SIG SCH ×4 (01:40→20:24)
[2018-04-08] MEDS: Multivitamin/Minerals Therapeutic Tablet PO SCH (09:58)
[2018-04-08] MEDS: Enoxaparin Inj 40 MG/0.4 ML Syringe SQ SCH (09:58)
[2018-04-08] MEDS: levETIRAcetam 500 MG Tablet PO SCH ×2 (09:58→20:24)
[2018-04-08] MEDS: Ezetimibe 10 MG Tablet PO SCH (09:58)
[2018-04-08] MEDS: Ferrous Sulfate 325 MG Tablet PO SCH ×2 (09:58→20:24)
[2018-04-08] MEDS: Phenytoin Sodium 100 MG Capsule PO SCH ×2 (09:59→20:23)
[2018-04-08] MEDS: Senna/Docusate Sodium 8.6/50 MG Tablet PO SCH ×2 (10:00→20:24)
--- NOTE | 2018-04-08 10:59 | P.DIET ---
Nutritional Evaluation Type of nutrition evaluation: initial Nutrition screening: MDC (Malnutrition) Subjective Subjective Comments: Eating 75-100%. C/O diarrhea. Pt resides in a NH. Objective - Diagnosis Complicated UTI, fever, freq falls - Objective % IBW: 76 (IBW = 166#) Body Weight Used for Calculations: Actual (57.6 kg) Energy Needs - Lower Range (kCal/kg): 30 Energy Needs - Upper Range (kCal/kg): 35 Lower Limit kCal/kg (kCals): 1,728 Upper Limit kCal/kg (kCals): 2,016 Lower Limit Protein Factor (Grams per Kg): 1.0 Upper Limit Protein Factor (Grams per Kg): 1.5 Lower Protein Needs (Protein): 58 Upper Protein Needs (Protein): 86 Dietitian Reviewed in Medical Record: Current diet, Curent medications, Intake & Output, Labs, Medical history Diet Order: 1999 ADA, Glucerna Shakes tid Oral Diet Intake Amount: Excellent 90%+ Objective Comments: Meds include FeSO4, MVI/min, Dilantin Labs: Vit D hydroxy 13.3 Assessment Assessment: Pt is at high nutrition risk 2' to dementia, diarrhea and low wt for ht with a BMI of 18.2. Po intake is currently good. Diabteic diet and Glucerna Shakes are ordered. It is noted that the pt is on no diabetic meds and glucose is wnl. Recommend liberalize diet to regular. RD will follow. Recommendations: Liberalize diet to regular. Continue supplements. Dietitian to Monitor: Lab values, Glucose level, Supplement acceptance, Intake & Output, Diet tolerance, Weight change, PO Intake, Medical course
--- NOTE | 2018-04-08 13:06 | P.PNIM ---
Subjective Interval history: Follow up on patient with sepsis, complicated UTI, altered mental status. Patient seen and examined. Patient says he is doing good. He denies any fever or chills. He denies any cough, chest pain or dyspnea. He reports good appetite. He denies any diarrhea. Physical Exam Vital signs: Vital Signs 04/07/18 20:00 04/08/18 00:00 04/08/18 04:00 Temperature 98 F 98 F 98 F Pulse Rate 63 71 65 Respiratory Rate 20 18 18 Blood Pressure 137/79 142/76 H 154/82 H Pulse Oximetry 94 L 97 95 04/08/18 08:00 04/08/18 12:00 Temperature 98.2 F 98.1 F Pulse Rate 87 81 Respiratory Rate 18 19 Blood Pressure 142/86 H 161/96 H Pulse Oximetry 95 95 Intake & Output 04/07/18 04/08/18 04/08/18 18:59 06:59 18:59 Intake Total 2400 / 2400 340 / 340 200 / 200 Balance 2400 / 2400 340 / 340 200 / 200 Weight 57.6 kg Intake: IV 1200 / 1200 100 / 100 200 / 200 NS Inj 1,000 ML @ 75 mls/hr IV. 1000 / 1000 CONT .[id number] [facility] Rx#:[id number] Unasyn Inj 3 GM In NS Inj 100 200 / 200 100 / 100 200 / 200 ML @ 200 mls/hr IV.SIG Q6H [facility] Rx#:[id number] Oral 1200 / 1200 240 / 240 Other: # Voids 5 # Urine Diapers 1 Date of Last Bowel Movement 04/07/18 04/07/18 04/07/18 # Bowel Movements 4 Narrative: GENERAL: Frail thin elderly male patient, INAD. Awake and alert. Very hard of hearing. Appears comfortable sitting on side of bed eating breakfast. SKIN: Warm and dry. HEENT: Atraumatic. Normocephalic. Pupils equal and round. No scleral icterus. No nasal discharge. Mucous membranes pink and moist. NECK: Trachea midline. CARDIOVASCULAR: Regular rate and rhythm. RESPIRATORY: No accessory muscle use. Clear to auscultation. GASTROINTESTINAL: Abdomen soft, non-tender, nondistended. +BS. MUSCULOSKELETAL: Muscle wasting. Extremities without clubbing, cyanosis or edema. No obvious deformities. +resting tremor right hand. NEUROLOGICAL: Awake and alert. No obvious cranial nerve deficits. Able to move all extremities spontaneously. Normal speech. PSYCHIATRIC: Calm and cooperative. Results Labs CBC & Chem 7: 04/07/18 07:20 04/05/18 06:04 Labs: Microbiology 04/06/18 11:27 Blood - Peripheral Aerobic Blood Culture - Preliminary No growth in 2 days 04/06/18 11:27 Blood - Peripheral Anaerobic Blood Culture - Preliminary No growth in 2 days 04/06/18 11:37 Blood - Peripheral Aerobic Blood Culture - Preliminary No growth in 2 days 04/06/18 11:37 Blood - Peripheral Anaerobic Blood Culture - Preliminary No growth in 2 days 04/04/18 06:00 Blood - Peripheral Aerobic Blood Culture - Preliminary No growth in 4 days 04/04/18 06:00 Blood - Peripheral Anaerobic Blood Culture - Final Viridans streptococcus grp Staphylococcus coag negative 04/04/18 06:05 Blood - Peripheral Aerobic Blood Culture - Preliminary No growth in 4 days 04/04/18 06:05 Blood - Peripheral Anaerobic Blood Culture - Final Viridans streptococcus grp Assessment and Plan Plan 78-year-old male [place] [facility] [place]. No history of syncopal episode. Patient says that he feels weak and his legs give out. Patient is aware of all his falls. His temperature in ER was 103.5 rectally. He was complaining of some sacral pain. Oxygen saturation was 93% on room air. Blood pressure and heart rate is within acceptable limits. Found with UTI. Concern for early sepsis with fever, temp 103.5, resolved Bacteremia Complicated UTI Hx of BPH diarrhea, now resolved, C diff neg -Urine culture positive for Enterococcus faecalis -Blood cultures +Viridans streptococcus and coag neg staph -ID following, appreciate assistance, abx changed to IV Unasyn. 2D echo ordered /pending. -patient is no longer febrile, no leukocytosis -repeat blood cultures with no growth x 2 days, continue to follow until finalized Frequent falls secondary to infection, dementia TSH 2.580 B12 647 Phos 2.5 B6 pending -continue with PT -Fall precautions -orthostatic BP measurements negative Vitamin D deficiency Vit D level 13.3 -started on po vitamin D3 supplementation daily, continue BPH -continue Flomax Seizure disorder, stable -Continue Keppra and Dilantin -Seizure precautions DM II, diet controlled -Blood glucose 90s, no need for monitoring for now Dementia With increased falls secondary to UTI -Continue with Aricept 10 mg p.o. day Anemia iron deficiency -Continue with ferrous sulfate 325 mg p.o. twice daily 04/06 hgb dropped from 15.2 to 12.5 ?due to hemoconcentration. 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 Will liberalize diet. -Glucerna shakes TID -multivitamin daily DVT prophylaxis SCDs/teds/Lovenox Code Status: FULL Discussed Condition With: patient, nursing staff, Dr. Bruce Discharge Planning: Discharge pending ID workup/Echo results, results of repeat blood culture Progress Note: Quality VTE Deep Vein Thrombosis/Pulmonary Embolism Present on Admission: No
[2018-04-08] MEDS: Melatonin 5 MG Tablet PO SCH (20:24)
[2018-04-08] MEDS: traZODone 50 MG Tablet PO SCH (20:27)
[2018-04-09] MEDS: Ampicillin/Sulbactam Inj 3 GM in Sodium Chloride 0.9% Inj 100 ML IV.SIG SCH ×2 (01:03→08:30)
--- NOTE | 2018-04-09 07:54 | P.DCO ---
Diagnosis (1) Weakness: Status: Acute (2) At high risk for falls: Status: Acute (3) Gait instability: Status: Acute Physical Therapy Order: Evaluate and treat, Improve ambulation and Strength and gait training Home Health Nursing Order: Nursing assessment with vital signs Case Management Consult Case Management Consult-Home Health: Yes I have seen patient Roque Hooks on 04/09/18. My clinical findings support the need for the requested home health care services because: Deconditioned with increased weakness, Medication compliance is questionable, Limited ability to care for self, Impaired cognition/judgement, High risk of falls and Infection with risk of complications I certify that my clinical findings support that this patient is homebound because: Impaired cognitive ability/safety, Unsteady gait/balance, Unsafe to leave home unassisted and Unable to use public transportation
[2018-04-09 08:08] VITALS: RESP 17
[2018-04-09] MEDS: Phenytoin Sodium 100 MG Capsule PO SCH (08:24)
[2018-04-09] MEDS: levETIRAcetam 500 MG Tablet PO SCH (08:24)
[2018-04-09] MEDS: Ferrous Sulfate 325 MG Tablet PO SCH (08:24)
[2018-04-09] MEDS: Ezetimibe 10 MG Tablet PO SCH (08:25)
[2018-04-09] MEDS: Enoxaparin Inj 40 MG/0.4 ML Syringe SQ SCH (08:25)
[2018-04-09] MEDS: Multivitamin/Minerals Therapeutic Tablet PO SCH (08:25)
[2018-04-09] MEDS: Senna/Docusate Sodium 8.6/50 MG Tablet PO SCH (08:26)
[2018-04-09 12:10] VITALS: TEMP 98.1
--- NOTE | 2018-04-09 13:06 | P.PNID ---
Subjective Remarks: pt is doing OK afebrile repeat BC negative Antibiotics: ampicilln/S Allergies/Adverse Reactions: Allergies No Known Allergies Allergy (Verified 04/04/18 05:39) Objective Vital Signs 04/08/18 16:00 04/08/18 20:00 04/08/18 20:18 Temperature 98.3 F 98.1 F Pulse Rate 70 70 67 Respiratory Rate 18 17 Blood Pressure 142/82 H 119/62 Pulse Oximetry 96 96 04/09/18 00:00 04/09/18 00:04 04/09/18 03:51 Temperature 98.3 F Pulse Rate 68 58 L 69 Respiratory Rate 18 Blood Pressure 127/70 Pulse Oximetry 94 L 04/09/18 04:00 04/09/18 08:00 04/09/18 12:00 Temperature 98.1 F 98.3 F 98.1 F Pulse Rate 75 68 71 Respiratory Rate 20 17 17 Blood Pressure 132/62 151/76 H 121/74 Pulse Oximetry 95 93 L 95 Intake & Output 04/08/18 04/09/18 04/09/18 18:59 06:59 18:59 Intake Total 1050 / 1050 440 / 440 100 / 100 Balance 1050 / 1050 440 / 440 100 / 100 Weight 57.2 kg Intake: IV 1050 / 1050 200 / 200 100 / 100 NS Inj 1,000 ML @ 75 mls/hr IV. 750 / 750 CONT .[id number] [facility] Rx#:[id number] Unasyn Inj 3 GM In NS Inj 100 300 / 300 200 / 200 100 / 100 ML @ 200 mls/hr IV.SIG Q6H [facility] Rx#:[id number] Oral 240 / 240 Other: # Urine Diapers 1 Date of Last Bowel Movement 04/07/18 04/07/18 04/06/18 11:27 Blood - Peripheral Aerobic Blood Culture - Preliminary No growth in 3 days 04/06/18 11:27 Blood - Peripheral Anaerobic Blood Culture - Preliminary No growth in 3 days 04/06/18 11:37 Blood - Peripheral Aerobic Blood Culture - Preliminary No growth in 3 days 04/06/18 11:37 Blood - Peripheral Anaerobic Blood Culture - Preliminary No growth in 3 days 04/04/18 06:00 Blood - Peripheral Aerobic Blood Culture - Final No growth in 5 days 04/04/18 06:00 Blood - Peripheral Anaerobic Blood Culture - Final Viridans streptococcus grp Staphylococcus coag negative 04/04/18 06:05 Blood - Peripheral Aerobic Blood Culture - Final No growth in 5 days 04/04/18 06:05 Blood - Peripheral Anaerobic Blood Culture - Final Viridans streptococcus grp 04/04/18 06:27 Clean Catch Urine Urine Culture - Final Enterococcus faecalis Imaging: ITS Impressions Chest X-Ray 04/04/18 05:54 CONCLUSION: 1. Diffuse interstitial prominence of unknown chronicity given lack of prior exams. Physical Exam: GENERAL: NAD SKIN: Warm and dry. CARDIOVASCULAR: Regular rate and rhythm. RESPIRATORY: No accessory muscle use. Clear to auscultation. Breath sounds equal bilaterally. GASTROINTESTINAL: Abdomen soft, non-tender, nondistended. Hepatic and splenic margins not palpable. MUSCULOSKELETAL: Extremities without clubbing, cyanosis, or edema. No obvious deformities. NEUROLOGICAL: Awake and alert. [place]. following commands Five out of 5 muscle strength in the arms and legs. Normal speech. PSYCHIATRIC: calm and coopertaitve Assessment and Plan - Plan Syncopal episoded, and fever - likley 2/2 sepsis UTI Vir strep bactermia / source uncleart ? contamination: one of the set contains coag neg staph along with vir strep repeat clx neg diarrehea, abx associated, C.diff negative dc Unasyn switch to Rocephin x 2 weeks if 2 D echo negative repeat BC 2 weeks after all abx completed follow 2 D echo; if 2 D echo positive for endocarditis and/or repeat bl clx positive Rx will be different will Rx UTI wit oral ampicillin x 10 more days OK to dc from ID standpoint after he above arranged
--- NOTE | 2018-04-09 13:08 | P.DCO ---
Post Hospital Infusion Therapy - Infusion Therapy Location of Infusion Therapy: Home Health Care IV Infusion Order - Patient Information Patient Weight: 57.2 kg - Diagnosis (1) Bacteremia Code(s): R78.81 - Bacteremia - Administer Medication Ceftriaxone Dose: 2 grams IV Directions: q 24 hours Start Treatment: 04/10/18 Stop Treatment: 04/20/18 - Additional Information Venous Access: PICC Line Additional Instructions: [x] Peripheral flush and dressing changes per protocol [x] Implanted port and central commercial lines account executive: * Implanted port: 10 ml Normal Saline followed by 5 ml Heparin 100 units/ml Heparin flush after each use and monthly to maintain. [] May leave port accessed during therapy. [] May leave peripheral site accessed for duration of therapy. [x] If patient has SOB or respiratory distress, check oxygen saturation. If less than 90% or clinical signs of respiratory distress, administer oxygen at 2 L/min. via nasal cannula and notify physician. [x] Anaphylaxis/Reaction orders: * Stop infusion. * Keep IV line open with saline flush. * Notify physician. * Monitor vital signs every 15 minutes until symptoms resolve. * Check Oxygen saturation; Oxygen at 2 L/min. via nasal cannula if less than 90% or clinical signs of respiratory distress. * Administer diphenhydramine (Benadryl) 25 mg IV STAT, (unless patient has received as pre-med). May repeat once, if necessary. * Solu-Cortef 250 mg IVP over 30-60 seconds, use 100 mg vials for each dissolution. * Epinephrine (1mg/1 ml) 0.3 mg subcutaneously or IVP now with any signs of respiratory distress. * Check with physician for new additional pre-med orders if patient is re- challenged or re-treated. [x] May remove PICC line when treatment complete, after confirming with Physician. [x] If the patient is admitted to the hospital, the ED, or transferred via [facility] , complete transfer form including medication reconciliation order sheet. Weekly Labs: CBC w/diff, CMP - Case Management Consult Case Management Consult-IVF: Yes - Patient Information Allergies No Known Allergies Allergy (Verified 04/04/18 05:39)
[2018-04-09 16:28] VITALS: BP 136/77; PULSE 66; O2SAT 97
--- NOTE | 2018-04-09 16:40 | ECHRPT ---
Indication: Sepsis Endocarditis CONCLUSIONS Normal left ventricular size. Moderate concentric left ventricular hypertrophy. The left ventricular systolic function is normal with an estimated ejection fraction in the range of 65%. Mild thickening of the mitral valve leaflets. Mitral annular calcification is present. Trace mitral valve regurgitation. No vegetation notedAortic valve sclerosis is present. No vegetation notedNo vegetation notedThe pulmonary valve is not well visualized. aortic valve calcification BP: / HR: Rhythm: MEASUREMENTS (Male / Female) Normal Values Technical Quality:Technically difficult study 2D ECHO LV Diastolic Diameter PLAX 4.3 cm 4.2 - 5.9 / 3.9 - 5.3 cm LV Systolic Diameter PLAX 2.8 cm IVS Diastolic Thickness 0.9 cm 0.6 - 1.0 / 0.6 - 0.9 cm LVPW Diastolic Thickness 1.0 cm 0.6 - 1.0 / 0.6 - 0.9 cm LV Relative Wall Thickness 0.4 LVOT Diameter 2.2 cm Aortic Root Diameter 3.0 cm LA Systolic Diameter LX 2.8 cm 3.0 - 4.0 / 2.7 - 3.8 cm M-MODE AV Cusp Separation MM 1.7 cm DOPPLER AV Peak Velocity 131.0 cm/s AV Peak Gradient 6.9 mmHg AV Mean Gradient 4.0 mmHg AV Velocity Time Integral 29.5 cm LVOT Peak Velocity 106.0 cm/s LVOT Peak Gradient 4.5 mmHg LVOT Velocity Time Integral 23.9 cm AV Area Cont Eq vti 3.1 cm AV Area Cont Eq pk 3.1 cm Mitral E Point Velocity 64.7 cm/s Mitral A Point Velocity 61.7 cm/s Mitral E to A Ratio 1.0 LV E' Lateral Velocity 6.5 cm/s Mitral E to LV E' Lateral Ratio 9.9 LV E' Septal Velocity 6.4 cm/s Mitral E to LV E' Septal Ratio 10.1 TR Peak Velocity 247.0 cm/s TR Peak Gradient 24.4 mmHg Right Atrial Pressure 10.0 mmHg Pulmonary Artery Systolic Pressu 34.4 mmHg Right Ventricular Systolic Press 34.4 mmHg FINDINGS LEFT VENTRICLE Normal left ventricular size. Moderate concentric left ventricular hypertrophy. The left ventricular systolic function is normal with an estimated ejection fraction in the range of 65%. LEFT ATRIUM The left atrial size is normal. RIGHT ATRIUM The right atrial size is normal. ATRIAL SEPTUM Normal atrial septal thickness without atrial level shunting by limited color doppler interrogation. AORTA The aortic root and proximal ascending aorta are normal in size on limited imaging. MITRAL VALVE Mild thickening of the mitral valve leaflets. Mitral annular calcification is present. Trace mitral valve regurgitation. No vegetation noted AORTIC VALVE Aortic valve sclerosis is present. No vegetation noted TRICUSPID VALVE No vegetation noted PULMONARY VALVE The pulmonary valve is not well visualized. VESSELS The inferior vena cava is normal in size. PERICARDIUM No pericardial effusion. Satish Chung MD, FACC, FSCAI (Electronically Signed) Final Date:09 April 2018 15:58
--- NOTE | 2018-04-09 16:46 | P.DS ---
DS: Providers Date of admission: 04/04/18 08:17 Primary care physician: UNKNOWN Consults: 04/05/18 10:07 HUB Only Consult Order Routine Consulting Provider: Parrish Merchant 04/05/18 18:22 Consult to Infectious Diseases Routine Consulting Provider: Yarelis Chung Reason for Consultation: complicated UTI, bacteremia Notified:: Service Spoke with:: Kirti Date Notified:: 04/05/18 Time Notified:: 18:42 Ordering Provider: BENY Attending physician on discharge: Talat Bruce Anticipated date of discharge: 04/09/18 Brief History from admission: 78-year-old male was sent from the long-term for frequent falls. Patient says that yesterday he fell twice and today he fell once. No history of syncopal episode. Patient says that he feels weak and his legs give out. Patient is aware of all his falls. The long-term paperwork says that patient has history of frequent falls which patient admitted to. His temperature in ER was 103.5 rectally. He says he has been coughing a little. No history of vomiting or diarrhea. He was complaining of some sacral pain. Oxygen saturation was 93% on room air. Blood pressure and heart rate is within acceptable limits. Patient is found with complicated UTI started with the IV antibiotics. Patient update on day of discharge: Patient seen and examined. Patient denies any acute medical complaints. He denies any dizziness, headache, fever, chills , nausea, vomiting, shortness of breath, chest pain or abdominal pain. Patient is looking forward to being discharged today. DS: Summary Patient admitted from long-term for frequent falls. Patient was found to have compensated UTI and was started on IV antibiotics. He had positive blood cultures which ultimately grew strep viridans. Patient was seen in consultation by infectious disease for bacteremia and was started on IV Unasyn. It was unclear the source of the patient's infection and there was the possibility of contamination given that one set of the cultures contain coagulase negative staph along with strep viridans. Patient's urine culture grew enterococcus faecalis. Patient had orthostatic BP measurements which were negative. Patient participated with physical therapy. He had an echocardiogram which did not show any vegetation, EF 65%. Repeat blood cultures failed to show any growth in 3 days. Patient improved clinically. He was cleared for discharge by infectious disease on oral amoxicillin times 10 days to complete his UTI treatment and IV Rocephin times 2 weeks. PICC line was placed. Patient will need to have blood cultures repeated in 2 weeks following completion of his antibiotic therapy. Patient reached maximal benefit of his hospitalization. Time Spent with Patient Total time spent providing and/or coordinating discharge services: Greater than 30 minutes Status at Discharge Functional status at discharge: uses cane/walker Overall status at discharge: patient is progressing back to baseline Quality: VTE Deep Vein Thrombosis/Pulmonary Embolism Present on Admission: No Exam Narrative Exam Narrative: GENERAL: Frail thin elderly male patient, [place]. Awake and alert. Very hard of hearing. SKIN: Warm and dry. No generalized rash. HEENT: Atraumatic. Normocephalic. Pupils equal and round. No scleral icterus. No nasal discharge. Mucous membranes pink and moist. NECK: Trachea midline. CARDIOVASCULAR: Regular rate and rhythm. RESPIRATORY: No accessory muscle use. Clear to auscultation. GASTROINTESTINAL: Abdomen soft, non-tender, nondistended. +BS. MUSCULOSKELETAL: Muscle wasting. Extremities without clubbing, cyanosis or edema. No obvious deformities. +resting tremor right hand. NEUROLOGICAL: Awake and alert. No obvious cranial nerve deficits. Able to move all extremities spontaneously. Normal speech. PSYCHIATRIC: Calm and cooperative. Results Labs on day of discharge: Preliminary micro results at discharge 04/06/18 11:27 Aerobic Blood Culture - Preliminary Blood - Peripheral No growth in 3 days Anaerobic Blood Culture - Preliminary No growth in 3 days 04/06/18 11:37 Aerobic Blood Culture - Preliminary Blood - Peripheral No growth in 3 days Anaerobic Blood Culture - Preliminary No growth in 3 days Impressions ITS Impressions Chest X-Ray 04/04/18 05:54 CONCLUSION: 1. Diffuse interstitial prominence of unknown chronicity given lack of prior exams. Discharge Plan Discharge Disposition Patient Disposition: 03 Discharge to SNF Discharge Condition Condition: Stable Discharge Order Discharge Orders: Discharge Order (Routine); Ordered 04/09/18 Ordered By: Mandie Ravi Discharge Details Anticipated Discharge Date: 04/09/18 Physicians Team ED Provider: Braulio Fitzgerald Primary Care Provider: UNKNOWN, Attending Provider: Talat Bruce Other Providers: [facility],Agency ; Yarelis Chung Rxs /Orders / Referrals /Forms Prescriptions: New amoxicillin 500 mg Capsule 500 mg PO Q6HR 10 Days Qty: 40 RF: 0 cholecalciferol (vitamin D3) [Vitamin D3] 1,000 unit Tablet 2,000 unit PO DAILY 30 Days Qty: 60 RF: 0 Continue trazodone 50 mg Tablet 50 mg PO HS RF: 0 donepezil 10 mg Tablet 10 mg PO DAILY RF: 0 phenytoin sodium extended [Dilantin Extended] 100 mg Capsule 200 mg PO BID RF: 0 tamsulosin 0.4 mg Capsule 0.4 mg PO DAILY RF: 0 docusate sodium [Colace] 100 mg Capsule 100 mg PO DAILY RF: 0 aspirin 81 mg Tablet,Chewable 81 mg PO DAILY RF: 0 ezetimibe 10 mg Tablet 10 mg PO DAILY RF: 0 levetiracetam [Keppra] 1,000 mg Tablet 1,000 mg PO BID RF: 0 ferrous sulfate 324 mg (65 mg iron) Tablet,Delayed Release (Dr/Ec) 324 mg PO BID RF: 0 melatonin 5 mg Tablet 5 mg PO HS RF: 0 Referrals: Primary Care Provider [Outside] - See Instructions ( Please call the physician's office to book the appointment to be seen within one week.) Discharge Instructions Patient Printed Instructions: Amoxicillin (By mouth), Vitamin D (By mouth), Dementia (GEN), Weakness (DC) Post Discharge Care Plan Care Plan Goals: Your Health Problems: Goals to Promote Your Health: * To prevent worsening of your condition * To maintain your health at the optimal level Directions to Meet Your Goals: * Take your medications as prescribed * Follow your dietary instruction * Follow activity as directed * Keep your appointments as scheduled * Take your immunizations and boosters as scheduled * If your symptoms worsen call your PCP * If no PCP go to Urgent Care or Emergency Room Smoking is dangerous to your health. Avoid second hand smoke. You may reach the 24-hour crisis hotline for domestic abuse at . Status ED Status: Left Department
== END 2018-04-09 18:43 | DRG 872 ==
LOC: NEPE 05:28 → NEDA 05:28 → N07 09:25
PROVIDERS: ADMIT Hospitalist; ATTEND Hospitalist
DX: D50.9 Iron deficiency anemia, unspecified; N39.0 Urinary tract infection, site not specified; R19.7 Diarrhea, unspecified; F03.90 Unspecified dementia, unspecified severity, without behavioral disturbance, psychotic disturbance, mood disturbance, and anxiety; E11.9 Type 2 diabetes mellitus without complications; R53.1 Weakness; H91.90 Unspecified hearing loss, unspecified ear; E55.9 Vitamin D deficiency, unspecified; Z68.1 Body mass index [BMI] 19.9 or less, adult; Z91.81 History of falling; M62.50 Muscle wasting and atrophy, not elsewhere classified, unspecified site; R29.6 Repeated falls; I10 Essential (primary) hypertension; Z79.82 Long term (current) use of aspirin; E78.5 Hyperlipidemia, unspecified; Z86.73 Personal history of transient ischemic attack (TIA), and cerebral infarction without residual deficits; R05 Cough; R26.81 Unsteadiness on feet; Z79.899 Other long term (current) drug therapy; R25.1 Tremor, unspecified; M25.559 Pain in unspecified hip; R21 Rash and other nonspecific skin eruption; N40.0 Benign prostatic hyperplasia without lower urinary tract symptoms; A41.81 Sepsis due to Enterococcus; Z82.49 Family history of ischemic heart disease and other diseases of the circulatory system; G40.909 Epilepsy, unspecified, not intractable, without status epilepticus; M53.3 Sacrococcygeal disorders, not elsewhere classified
CPT/HCPCS: 71010; 71045; 76937; 80048; 80053; 81001; 82040; 82306; 82607; 82948; 82962; 83605; 83735; 84100; 84207; 84443; 84484; 85014; 85018; 85025; 85610; 86403; 87040; 87077; 87086; 87149; 87186; 87205; 87275; 87276; 87493; 87804; 90761; 90774; 90784; 93005; 93308; 96361; 96374; 97110; 97116; 97162; 99285; C8952; J0295; J0696; J1650; J3370; J7030; J7050